=== PATIENT | male | born 1970 | race Caucasian/White ===

== ENCOUNTER 2024-05-16 15:47 | Inpatient (IN) | payer OTHER, SELFPAY ==
[2024-05-16] VITALS (10 sets, daily range): BP systolic 132–198; BP diastolic 82–128; BMI 42.7; BMI 41.6
--- NOTE | 2024-05-16 10:41 | ED.GENMED ---
History of Present Illness
General
Chief Complaint: Breathing Problem
Source: patient
Exam Limitations: none
Time Seen by Provider: 05/16/24 10:32
Nursing documentation reviewed up to this point in time: agreed with
History of Present Illness
History of Present Illness:
53-year-old male with no reported chronic medical issues presents to the emergency room for evaluation of left rib pain. Patient reports onset of symptoms around 3:30 AM while he was sleeping and symptoms have been constant and generally worsening
since that time. He does report that the intensity waxes and wanes. He reports a sharp pain 'underneath my ribs on the left.' No radiation. Seems to be worse with respiration, no relieving factors noted. Reports mild associated shortness of
breath. Mild nausea no vomiting. No constipation or diarrhea. He does report that over the past 48 hours he has had some scant hematuria. No dysuria or change in frequency. He denies any recent cough, fevers, chills. He denies having had
similar symptoms in the past. He denies smoking or drug use but does admit to daily alcohol use including last night.
Review of Systems
Review of Systems
All Other Systems: ROS reviewed and negative except as documented in HPI and ROS
Constitutional: Denies fever or chills
Respiratory: Reports trouble breathing; Denies cough
Cardiac: Reports chest pain; Denies palpitations
ABD/GI: Reports abdominal pain and nausea; Denies vomiting, diarrhea or constipated
: Reports bleeding; Denies dysuria, frequency or flank pain
Musculoskeletal: Denies neck pain or back pain
Neurological: Denies dizzy or headache
Phy Exam
Physical Exam
Physical Exam:
General: Awake, alert, oriented x3; appears uncomfortable, shifting in bed unable to find position of comfort
Head: Normocephalic, atraumatic
Eyes: Conjunctiva normal, sclera anicteric
Throat: Airway intact, handling secretions
Neck: Trachea midline, supple without meningismus
Lungs: Clear to auscultation bilaterally, no wheezing, rales, rhonchi
Heart: Tachycardia with regular rhythm, no murmurs, gallops, or rubs
Abd: Soft, non distended, tender to palpation left upper quadrant
Neuro: Cranial nerves grossly intact, speech fluid, no gross motor or sensory deficits
Skin: no rash
Extremities: No edema in extremities, equal pulses in all extremities
Scores
Heart Failure Risk
Heart Failure Risk Score: Not Applicable
Heart Score for Chest Pain Patients
STEMI patient?: Not applicable
Withdrawal Assessment of Alcohol
Withdrawal Assessment Completed?: Not applicable
Course
Orders/Labs/Results
Orders:
Orders
05/16/24 10:08
Electrocardiogram (*1) Urgent
Reason for Study: Chest Pain
EKG- Treatment ONCE
05/16/24 10:33
Complete Blood Count/With Diff Urgent
Comprehensive Metabolic Panel Urgent
Lipase Urgent
Comment: ADD ON
Troponin I Urgent
05/16/24 10:38
Ketorolac [Toradol] 15 mg IV NOW STA
05/16/24 10:39
CT Pe/abd/pel W Urgent
Reason For Exam: left lower chest/upper abd pain
05/16/24 10:41
PTT Urgent
Prothrombin Time Urgent
05/16/24 10:43
Add On- LAB Urgent
Tests Added?: lipase
05/16/24 11:39
Diazepam [Valium] 2 mg PO NOW STA
05/16/24 13:27
Urinalysis Reflex To Culture Urgent
0.9% Sodium Chloride 1000 ml [Nss] 1,000 ml IV BOLUS
HYDROmorphone [Dilaudid] 0.5 mg IV NOW STA
05/16/24 13:31
Troponin I Urgent
Blood Culture Urgent
THERESE Source: Blood/Venous
Specimen Description:
05/16/24 13:40
Blood Culture Routine
THERESE Source: Blood/Venous
Specimen Description:
05/16/24 13:42
Lactate Level [Lactic Acid] Urgent
05/16/24 14:20
Acetaminophen [Tylenol] 650 mg PO NOW STA
05/16/24 14:25
Piperacillin/Tazo 3.375 Gram [Zosyn] 3.375 gram in 50 ml IV NOW
Abnormal Lab Results
05/16/24 05/16/24
10:33 13:42
WBC 12.3 H 10^3/uL
(4.8-10.8)
MCV 98.3 H fL
(80.0-94.0)
MCH 36.3 H pg
(27.0-31.0)
Plt Count 126 L 10^3/uL
(130-400)
Abs Immat Gran (auto) 0.1 H 10^3/uL
(0-0.05)
Absolute Neuts (auto) 9.6 H 10^3/uL
(1.4-6.5)
Absolute Monos (auto) 0.7 H 10^3/uL
(0.1-0.6)
Neutrophils % 77.6 H %
(42.2-75.2)
Lymphocytes % 15.6 L %
(20.5-51.1)
Sodium 134 L mmol/L
(135-145)
Chloride 95 L mmol/L
(98-107)
Glucose 205 H mg/dl
(70-99)
Lactic Acid 2.8 H mmol/L
(0.7-2.0)
Total Bilirubin 1.7 H mg/dl
(0.2-1.3)
AST 92 H U/L
(17-59)
ALT 85 H U/L
(0-50)
Alkaline Phosphatase 129 H U/L
(38-126)
05/16/24 10:33
05/16/24 10:33
Vital Signs
Initial and Last Documented VS:
Initial Vital Signs
Temp Pulse Resp BP Pulse Ox
36.8 C 109 20 168/128 95
05/16/24 10:05 05/16/24 10:05 05/16/24 10:05 05/16/24 10:05 05/16/24 10:05
Last Documented Vital Signs
Temp Pulse Resp BP Pulse Ox
38.1 C H 108 20 135/89 91
05/16/24 13:46 05/16/24 14:00 05/16/24 14:02 05/16/24 14:00 05/16/24 14:00
MDM/Problems Addressed
Differential Diagnosis Includes:
Nephrolithiasis, PE, pneumothorax, lower lobe pneumonia, ACS, aortic dissection, musculoskeletal pain
MDM/Problems Addressed:
53-year-old male presents for evaluation of left rib pain�pain located left lower chest/upper abdomen; acute onset at around 3:30 AM. He has had some hematuria over the past few days. Also reports some mild associated shortness of breath today
since the pain has become very intense. Markedly hypertensive, tachycardic, mildly tachypneic; exam as above. EKG shows sinus tachycardia with new lateral T wave abnormalities. Plan to place an IV check labs including a CBC and a CMP, troponin,
lipase. Will check CTA to rule out PE and scan through abdomen pelvis as well to evaluate for nephrolithiasis. Will treat pain. Monitor closely reassess after the above.
Will proceed with a CT scan prior to lab work as, in my judgment, the risk of life-threatening emergency such as aortic dissection or PE given his significantly abnormal vital signs and EKG outweighs risk of IV contrast administration.
CTA chest/abdomen/pelvis shows no PE, no signs of aortic dissection or other acute pathology to account for patient's symptoms. Labs reviewed and CBC shows slight leukocytosis of 12.3, thrombocytopenia to 126, mildly abnormal LFTs with AST greater
than ALT�suspect likely related to reported daily alcohol use. Lipase pending. His initial troponin is undetectable which is reassuring given onset of symptoms 6 hours prior to arrival however we will continue to trend given abnormal EKG.
Clinical reassessment symptoms have only slightly improved with Peteradol�santa describes a sensation 'like a spasming' in the left upper abdomen/chest wall; can trial low-dose muscle relaxer.
Patient still having significant pain, will provide additional dose of pain medication. We are awaiting his repeat troponin. At this point unclear etiology to his significant pain�his lipase is normal he has no signs of acute pancreatitis on CT.
He has no nephrolithiasis on CT. He has no dissection or PE or pneumothorax--although evaluation of subsegmental branches for PE was limited. We are pending urinalysis to evaluate for pyelonephritis but he denies urinary symptoms. Certainly
gastric ulcer is a possibility given his history of daily alcohol use; gastritis somewhat less likely as he has no vomiting. LFTs suspected to be related to alcohol use but certainly retained biliary stone would be a consideration as well although
not clearly visible on CT scan may need HIDA scan if symptoms persistent without other etiology identified. I think at this point given his significant pain requiring multiple rounds of parenteral pain medications and no clear etiology, persistent
hypertension and tachycardia and abnormal blood work he should be admitted for continued evaluation and treatment. Furthermore given limitation of CTA to rule out peripheral PE will check duplex ultrasounds as well.
Patient spiked fever while here in the emergency room. Added lactate and blood cultures. Will cover with antibiotics broad-spectrum�no clear infectious source at this point but he has leukocytosis, tachycardia and fever and with abnormal LFTs
there is a possibility of retained stone although not clearly seen on CT. May require HIDA scan. Case discussed with hospitalist.
Chronic conditions affecting care:
Alcohol use
Acute Exacerbation and/or Progression of Chronic Illness:
Acutely hypertensive
*Radiology
Radiology exam reviewed: radiology read reviewed
*Pulse Oximetry
Patient hypoxic: no
*EKG
Interpreted by ED Provider?: Yes
Heart Rate: 102
Rate: tachycardiac
Rhythm: sinus
[place]: left axis deviation
Interval: normal interval
Ischemia: T-wave inversion
*Critical Care Note
Total Time (30-74mins, 75-104mins- exclusive of procedures): Not Applicable
Data Reviewed
Source: patient
Patient Management
Discussion with other providers: Hospitalist (Discussed with hospitalist)
Escalation/DeEscalation of care consider admission/obs:
Admission indicated
ED Attending Note
-
Portions of this chart may have been created with voice recognition software.� Occasional wrong word or��sound alike� substitutions may have occurred due to the inherent limitations of voice recognition software.
Discharge Plan
Departure
Patient Disposition: Admit
Date of Disposition: 05/16/24
Time of Disposition: 14:26
Admit to doctor: Vania
Presentation/result/management discussed w/ accepting MD/DO: Hospitalist
Discharge Problem:
Left sided abdominal pain, Fever, Abnormal LFTs, Thrombocytopenia
Prescriptions:
No Action
ibuprofen 200 mg Tablet
600 mg PO Q6HPRN PRN (Reason: mild pain)
Referrals:
UNKNOWN - PT DOES,NOT KNOW [Family Provider] -
Interventions
Interventions:
*Risk Screen - Suicide Last Done: 05/16/24 10:35
*General Assessment Last Done: 05/16/24 10:34
*Neglect/Abuse Screening Last Done: 05/16/24 10:35
ED- Fall Risk Assessment Last Done: 05/16/24 10:36
*ED COVID-19 Vaccine History Last Done: 05/16/24 10:47
ED- Cardiac Assessment Last Done: 05/16/24 10:36
ED- Pulmonary Assessment Last Done: 05/16/24 10:36
Discharge Date and Time
Print Language: NIUEAN
[2024-05-16] MEDS: TORADOL 15 MG IV (10:42)
[2024-05-16 10:47] LABS: % Basophils 0.4 % (0-2); % Eosinophils 0.2 % (0-6); % Immature Granulocytes 0.4 % (0-0.5); % Lymphocytes 15.6 % (20.5-51.1); % Monocytes 5.8 % (1.7-9.3); % Neutrophils 77.6 % (42.2-75.2); Absolute Basophils 0.1 10^3/uL (0-0.2); Absolute Immature Granulocytes 0.1 10^3/uL (0-0.05); Absolute Lymphocytes 1.9 10^3/uL (1.2-3.4); Absolute Monocytes 0.7 10^3/uL (0.1-0.6); Absolute Neutrophils 9.6 10^3/uL (1.4-6.5); Hematocrit 46.9 % (39.0-52.0); Hemoglobin 17.3 g/dL (13.0-18.0); Mean Corp Hgb Conc. 36.9 g/dL (33.0-37.0); Mean Corpuscular Hgb 36.3 pg (27.0-31.0); Mean Corpuscular Volume 98.3 fL (80.0-94.0); Mean Platelet Volume 10.4 fL (7.4-10.4); Nucleated Red Blood Cells % 0 % (-); Platelet Count 126 10^3/uL (130-400); Red Blood Cell Count 4.77 10^6/uL (4.70-6.10); Red Cell Dist. Width 11.7 % (11.5-14.5); White Blood Cell Count 12.3 10^3/uL (4.8-10.8)
[2024-05-16 10:55] LABS: ALT (SGPT) 85 U/L (0-50); AST (SGOT) 92 U/L (17-59); Albumin 4.5 g/dl (3.5-5.0); Alkaline Phosphatase 129 U/L (38-126); Blood Urea Nitrogen 10 mg/dl (9-20); Calcium 9.3 mg/dl (8.4-10.2); Carbon Dioxide 27 mmol/L (22-30); Chloride 95 mmol/L (98-107); Estimated Creatinine Clearance > 125 ml/min; Glucose 205 mg/dl (70-99); Potassium 3.7 mmol/L (3.5-5.1); Sodium 134 mmol/L (135-145); Total Bilirubin 1.7 mg/dl (0.2-1.3); Total Protein 8.2 g/dl (6.3-8.2); eGFR > 60.00
[2024-05-16 11:02] LABS: Troponin I < 0.012 ng/ml
[2024-05-16 11:04] LABS: APTT 27.5 Sec (23.4-35.0)
[2024-05-16] MEDS: VALIUM 2 MG PO (11:43)
[2024-05-16 11:55] LABS: Lipase 154 U/L (23-300)
[2024-05-16] MEDS: DILAUDID 0.5 MG IV ×2 (13:44→18:07)
[2024-05-16] MEDS: NSS 1000 IV ×2 (13:44→17:56)
[2024-05-16 14:05] LABS: Lactic Acid 2.8 mmol/L (0.7-2.0)
[2024-05-16 14:10] LABS: Troponin I < 0.012 ng/ml
[2024-05-16] MEDS: TYLENOL 650 MG PO (14:24)
[2024-05-16] MEDS: ZOSYN 50 IV ×2 (14:28→19:44)
--- NOTE | 2024-05-16 14:39 | HPS.HSE ---
Addendum entered and electronically signed by Shon Siddiqui MD 05/16/24 17:48:
Sudden onset abdominal pain early this morning. No prior episodes. Pain is left upper abd. Noted hard small stools which is atypical for him during the prior 3 days. Pt demonstrating a lot of pain
Pt seen independently and agree with [employer] note
Lungs clear
CV reg
Abd significant guarding, hypoactive BS, very tender LUQ, but no referred pain
Ext no edema
Imp: etio of abd pain is unclear. Presentation is atypical, but concern for surgical abd and as such consult with Dr. Vivas was requested, who does not believe this is a surgical abd and recommends conservative managment
excessive Etoh consumption
P narcotic analgesic
follow up abd XRay
follow Lactic Acid
Original Note:
Family Physician
-
Family Physician: NOT KNOW UNKNOWN - PT DOES
Chief Complaint
-
Left-sided abdominal pain, nausea, fever
History of Present Illness
53-year-old male complaining of sharp pain under his ribs on the left side of his abdomen radiating to left flank occurring at 330 this morning that has been constant but then waxes and wanes. He also reports some mild nausea but no vomiting . He
also reports a sore throat for the past couple days. He complains of hematuria yesterday with some sediment in his urine x 1. He states he had episode of kidney stones that he passed approximately 1 month ago. he is also complaining of
constipation x 3 days with hard stool when he does. He does report daily alcohol use including last night, he typically drinks 10 beers a day with 6 ounces of whiskey daily. In the ER he was noted to have mild transaminitis with leukocytosis and a
temp of 100.6 F. He denies headache, chest pain, palpitations, shortness breath, cough, vomiting, diarrhea, no history of drug use. His past medical history of alcohol abuse, renal calculi, occasional smoker
Medical History
Past Medical History
Past Medical History: Reports Other
Additional Past Medical History:
Alcohol abuse
Occasional smoker
Renal calculi
Past Surgical History: Reports Appendectomy
Social History
Tobacco: Smoker (Reports occasionally smokes)
Alcohol: Daily (10 beers +6 ounces of Edy whiskey daily)
Drug: None
Personal:
Living: Alone
Employment: Employed (communication and outreach manager)
Family History
Family History: Other (Father early CAD multiple MIs starting at age 45 multiple stents, AVR, CVA still living, mother age 72 lung cancer history of renal disease requiring renal transplant)
Allergies / Home Medications
Allergies reflects when Allergies were last updated in [facility].
Home Medications with original date entered in [facility]
Allergy/Medication List:
Allergies
Allergy/AdvReac Type Severity Reaction Status Date / Time
No Known Allergies Allergy Unverified 05/16/24 10:04
Home Medications
ibuprofen 200 mg tablet 600 mg PO Q6HPRN PRN mild pain 05/16/24
Review of Systems
-
History Source: Patient
A 12 point ROS was completed and negative except as noted: Yes
Constitutional: Reports Fever
EENT: Reports Sore Throat; Denies Runny Nose
Respiratory: Denies Cough or Trouble Breathing
Cardiac: Denies Chest Pain, Diaphoresis or Palpitations
Abdomen/GI: Reports Abdominal Pain (Left upper quadrant to left flank), Nausea and Constipated (3 days ); Denies Vomiting, Diarrhea, Bloody Stools or Black Stools
: Reports Flank Pain (Left) and Bleeding (Hematuria yesterday x 1 episode with sediment); Denies Dysuria, Frequency, Incontinence or Difficulty Voiding
Musculoskeletal: Denies Joint Pain or Edema
Skin: Denies Itching or Rash
Neurological: Denies Dizzy, Headache or Weakness
Endocrine: Reports No Symptoms
Hematologic/Lymphatic: Reports No Symptoms
Psych: Reports Calm
Physical Exam
Vital Signs
Vital Signs
Temp Pulse Resp BP Pulse Ox
100.6 F H 108 20 135/89 91
05/16/24 13:46 05/16/24 14:00 05/16/24 14:02 05/16/24 14:00 05/16/24 14:00
Physical Exam
General: Conversant, Pain and Fever; No Chills
HEENT: NormoCephalic, Anicteric, Moist mucous membranes, PERRLA, [place] Conjunctivae and No Ptosis
Respiratory: Clear; No Wheezes, Rales or Rhonchi
Cardiac: S1/S2 and Tachycardia (Sinus); No Murmur, Rub, Gallop or Peripheral Edema
Breast: Deferred by me
GI: Tender (Left upper quadrant to left flank), Distended and Other (Unable to assess hepatosplenomegaly due to pain and guarding, hypoactive bowel sounds)
Rectal: Deferred by Provider
Genito-urinary: Deferred by me
Musculoskeletal: No Clubbing, No Cyanosis and No Edema
Skin: Warm and Dry; No Rash or Jaundice
Neuro: AO x 3, No Motor Deficits, Nonfocal/grossly intact, Cranial Nerves Intact and No Sensory Deficits; No Slurred Speech, Facial Droop, Tremors or Sedated
Psych: Calm
Laboratory Results
-
05/16/24 10:33
05/16/24 10:33
Laboratory Results
PT 14.0 Sec (11.4-14.6) 05/16/24 10:41
INR 1.10 05/16/24 10:41
APTT 27.5 Sec (23.4-35.0) 05/16/24 10:41
Lactic Acid 2.8 mmol/L (0.7-2.0) H 05/16/24 13:42
Total Bilirubin 1.7 mg/dl (0.2-1.3) H 05/16/24 10:33
AST 92 U/L (17-59) H 05/16/24 10:33
ALT 85 U/L (0-50) H 05/16/24 10:33
Alkaline Phosphatase 129 U/L (38-126) H 05/16/24 10:33
Troponin I < 0.012 ng/ml 05/16/24 13:31
Lipase Cancelled 05/16/24 10:40
Impression/Plan
-
Impression/plan:
Admit to telemetry
#Acute Abd pain /transaminitis with leukocytosis unclear etiology
#Hematuria concern for uti/ pyelonephritis
#Diffuse hepatic steatosis per CT
AST 92, ALT 85, alk phos 129, T. bili 1.7
WBC 12.3 with left shift, 100.6 F, HR 108, 135/89
-Check blood cultures, UA, INSTALLATION ENGINEER
-- IV Zosyn
-IV NSS
-IV PPI
-IV Dilaudid as needed pain, Zofran as needed nausea, Tylenol for fever
- Consult Gen surgery
- u/s liver in am
-Follow CBC, CMP
CT chest abdomen pelvis with contrast: Diffuse hepatic steatosis, no PE. No acute process in the chest, abdomen or pelvis
#Alcohol abuse
10 beers daily with 6 ounces of whiskey daily
-MSAS screen with protocol
- Iv thimaine, Iv folate
#Acute thrombocytopenia likely reactive
PLT 126, follow cmp
DVT prophylaxis
SCDs
Full code
[2024-05-16] MEDS: DILAUDID 1 MG IV ×2 (15:20→21:40)
[2024-05-16 15:54] LABS: COVID-19 Antigen Negative (Negative)
--- NOTE | 2024-05-16 16:04 | CON.GS ---
Medical History
-
Chief Complaint: Abdominal pain
History of Present Illness:
Patient is a 53 yo M with a PMH of obesity, alcohol abuse, nephrolithiasis, and s/p open appendectomy who presents with less than 24 hours of LUQ abdominal pain. Mr. Tucker states that he awoke this morning with severe LUQ abdominal pain.
Described as a spasm of pain which radiated to his back. Associated low-grade fevers. Associated nausea and vomiting. He reports dysuria and hematuria in the days preceding. He reports some issues with constipation, but reports passing flatus
and nonbloody bowel movements. He denies any jaundice, pale stools, tea colored urine. He denies any prior issues of similar abdominal pain.
Past Medical History
Past Medical History: Other (Obesity)
Past Surgical History: Appendectomy
Social History
Tobacco: Smoker (Occasional)
Alcohol: Daily (10 beers and 5 shots a day)
Drug: None
Personal:
Living: Alone
Employment: Employed
Family History
Family History: Reviewed & Not Pertinent
Allergies / Home Medications
Allergy/AdvReac Type Severity Reaction Status Date / Time
No Known Allergies Allergy Unverified 05/16/24 10:04
�Medication �Instructions �Recorded �Confirmed �Type
ibuprofen 200 mg tablet 600 mg PO Q6HPRN PRN mild pain 05/16/24 05/16/24 History
Review of Systems
-
A 10 point review of systems was completed, and was negative except as per HPI.
Physical Exam
Vital Signs
Temp Pulse Resp BP Pulse Ox
100.6 F H 113 27 135/89 91
05/16/24 13:46 05/16/24 14:45 05/16/24 14:45 05/16/24 14:00 05/16/24 14:00
05/15/24 05/16/24 05/17/24
06:59 06:59 06:59
Actual Weight 135 kg
Body Mass Index (BMI) 42.7
Lab Results
05/16/24 10:33
WBC 12.3 10^3/uL (4.8-10.8) H 05/16/24 10:33
Hgb 17.3 g/dL (13.0-18.0) 05/16/24 10:33
Hct 46.9 % (39.0-52.0) 05/16/24 10:33
Plt Count 126 10^3/uL (130-400) L 05/16/24 10:33
Abs Immat Gran (auto) 0.1 10^3/uL (0-0.05) H 05/16/24 10:33
Neutrophils % 77.6 % (42.2-75.2) H 05/16/24 10:33
Physical Exam
General: Well Developed, Well Nourished, No Apparent Distress and Other (Diaphoretic)
HEENT: Normocephalic and Anicteric
Respiratory: Clear and Accessory Resp Muscle Use
Cardiac: Other (Mild tachycardia)
GI: Soft, Non Distended, Tender (LUQ just under costal margin), Obese and Other (Nonperitoneal (no rebound or guarding, no tenderness with percussion))
Musculoskeletal: No Edema
Skin: Warm and Dry
Neuro: Nonfocal/Grossly Intact
Data Reviewed
-
CT Scan: Image Personally Visualized and interpreted and Report Reviewed by me
Labs: Labs Reviewed by me
Assessment / Plan
-
Patient is a 53 yo M p/w abdominal pain
Uncertain exact origin of pain, possible passed kidney stone, possible MSK pathology. CT scan imaging was reviewed, no evidence of a acute intra-abdominal process. No significant bowel distention, pneumatosis, or free air. No portal venous gas.
No significant fluid or abscess formation. Exam with localized pain in the LUQ, but otherwise no pain on palpation or percussion of the abdomen; no evidence of peritonitis at this time.
-- No indication or plan for surgical intervention
-- Please call with any questions or concerns
[2024-05-16 17:50] LABS: INR 1.14; PT 14.4 Sec (11.4-14.6)
[2024-05-16] MEDS: THIAMINE INJECTION 200 MG IV (18:03)
[2024-05-16 18:07] LABS: GGTP 743 U/L (15-73); Magnesium 1.3 mg/dl (1.6-2.3); Phosphorus 3.9 mg/dl (2.5-4.5)
[2024-05-16 18:08] LABS: Alcohol None Detected
[2024-05-16 18:13] LABS: % Basophils 0.3 % (0-2); % Eosinophils 0.1 % (0-6); % Immature Granulocytes 0.6 % (0-0.5); % Lymphocytes 6.3 % (20.5-51.1); % Monocytes 5.5 % (1.7-9.3); % Neutrophils 87.2 % (42.2-75.2); Absolute Basophils 0.1 10^3/uL (0-0.2); Absolute Immature Granulocytes 0.1 10^3/uL (0-0.05); Absolute Lymphocytes 1.5 10^3/uL (1.2-3.4); Absolute Monocytes 1.3 10^3/uL (0.1-0.6); Absolute Neutrophils 20.4 10^3/uL (1.4-6.5); B-Hydroxybutyrate 0.09 mmol/L (0.02-0.27); Hematocrit 45.7 % (39.0-52.0); Hemoglobin 16.8 g/dL (13.0-18.0); Mean Corp Hgb Conc. 36.8 g/dL (33.0-37.0); Mean Corpuscular Hgb 36.6 pg (27.0-31.0); Mean Corpuscular Volume 99.6 fL (80.0-94.0); Mean Platelet Volume 10.1 fL (7.4-10.4); Nucleated Red Blood Cells % 0 % (-); Platelet Count 131 10^3/uL (130-400); Red Blood Cell Count 4.59 10^6/uL (4.70-6.10); White Blood Cell Count 23.4 10^3/uL (4.8-10.8)
[2024-05-16 19:54] LABS: Urine Albumin Trace (Neg - Trace); Urine Bilirubin 1+ (Negative); Urine Character Clear (Clear); Urine Color Amber; Urine Glucose Negative (Negative); Urine Ketone Trace (Negative); Urine Leukocyte Trace (Negative); Urine Nitrite Negative (Negative); Urine Occult Blood 4+ (Negative); Urine Specific Gravity 1.015 (<1.030); Urine Urobilinogen 1+ (Neg - 1+)
[2024-05-16] MEDS: VALIUM INJECTION 2 MG IV (20:33)
[2024-05-16] MEDS: MAGNESIUM SULFATE 50 IV (20:33)
[2024-05-16 20:42] LABS: Opiates Positive (Negative)
[2024-05-16 20:43] LABS: Amphetamines Negative (Negative); Barbiturates Negative (Negative); Benzodiazepines Positive (Negative); Buprenorphine Negative (Negative); Cocaine Negative (Negative); Marijuana Negative (Negative); Methadone Negative (Negative); Methamphetamines Negative (Negative); Phencyclidine Negative (Negative); Tricyclic Antidepressants Negative (Negative)
[2024-05-16 20:59] LABS: Urine Mucus Moderate; Urine Red Blood Cell 30-40 /HPF (0-2)
[2024-05-16 21:02] LABS: Fentanyl, Urine Negative (Negative)
[2024-05-16 21:06] LABS: Lactic Acid 3.2 mmol/L (0.7-2.0)
[2024-05-16] MEDS: ZOFRAN 4 MG IV (21:45)
[2024-05-17] VITALS (27 sets, daily range): BP systolic 120–193; BP diastolic 74–118
[2024-05-17] MEDS: DILAUDID 0.5 MG IV ×2 (00:08→15:17)
[2024-05-17] MEDS: TYLENOL 650 MG PO ×2 (00:08→10:30)
[2024-05-17] MEDS: THIAMINE INJECTION 200 MG IV ×4 (00:09→23:47)
[2024-05-17] MEDS: ATIVAN 1 MG PO ×2 (00:47→12:32)
[2024-05-17 02:02] LABS: Lactic Acid 1.5 mmol/L (0.7-2.0)
[2024-05-17] MEDS: DILAUDID 1 MG IV ×4 (04:01→21:02)
[2024-05-17] MEDS: ZOSYN 50 IV ×4 (04:01→19:50)
[2024-05-17] MEDS: NSS 1000 IV ×2 (04:01→19:50)
--- NOTE | 2024-05-17 05:15 | PTCARENOTE ---
Lactic acid 3.2- notified WELDER TECH, maintain fluids.
Throughout night, pt had consistent pain in LUQ 05/30 - see DEC. Elevated BP throughout night- WELDER TECH notified and no new orders. MSAS 4-6
Pt was also short of breath along with LUQ pain- EKG obtained
[2024-05-17 06:47] LABS: % Basophils 0.4 % (0-2); % Eosinophils 0.1 % (0-6); % Immature Granulocytes 0.7 % (0-0.5); % Neutrophils 85.8 % (42.2-75.2); Absolute Basophils 0.1 10^3/uL (0-0.2); Absolute Immature Granulocytes 0.1 10^3/uL (0-0.05); Absolute Lymphocytes 0.7 10^3/uL (1.2-3.4); Absolute Monocytes 0.9 10^3/uL (0.1-0.6); Absolute Neutrophils 10.5 10^3/uL (1.4-6.5); Hematocrit 40.5 % (39.0-52.0); Hemoglobin 14.8 g/dL (13.0-18.0); Mean Corp Hgb Conc. 36.5 g/dL (33.0-37.0); Mean Corpuscular Hgb 36.5 pg (27.0-31.0); Mean Corpuscular Volume 99.8 fL (80.0-94.0); Nucleated Red Blood Cells % 0 % (-); Red Blood Cell Count 4.06 10^6/uL (4.70-6.10); White Blood Cell Count 12.2 10^3/uL (4.8-10.8)
[2024-05-17 07:05] LABS: ALT (SGPT) 70 U/L (0-50); AST (SGOT) 68 U/L (17-59); Albumin 3.8 g/dl (3.5-5.0); Alkaline Phosphatase 96 U/L (38-126); Blood Urea Nitrogen 21 mg/dl (9-20); Calcium 8.4 mg/dl (8.4-10.2); Carbon Dioxide 29 mmol/L (22-30); Chloride 95 mmol/L (98-107); Estimated Creatinine Clearance 72 ml/min; Glucose 173 mg/dl (70-99); HDL Cholesterol 41 mg/dl; LDL Cholesterol, Calculated 117 mg/dl; Potassium 3.5 mmol/L (3.5-5.1); Sodium 132 mmol/L (135-145); Total Bilirubin 1.7 mg/dl (0.2-1.3); Total Cholesterol 192 mg/dl (50-199); Triglyceride 171 mg/dl (10-149); Very Low Density Lipoprotein 34 mg/dl (0-30); eGFR 50.88
--- NOTE | 2024-05-17 07:38 | CON.GI ---
Consultation
-
Date/Time Consultation Requested: 05/16/24
Date/Time Consultation Performed: 05/17/24
Requesting Provider: Chanelle Starks
Performing Provider: Tanya Rice
Reason for Consultation: Elevated liver enzymes
Medical History
Chief Complaint / HPI
Chief Complaint: LUQ abdominal pain
History of Present Illness:
Jose is a 53-year-old male with past medical history of alcohol abuse, nephrolithiasis, history of appendectomy and obesity admitted after presenting with complaints of left upper quadrant abdominal discomfort with radiation to his back with
and associated low-grade fevers, nausea and vomiting. He also admits to 1 episode of hematuria on the day prior to presentation. He denies having anything like this in the past. He states that he has been somewhat constipated but is passing gas.
He was admitted to daily alcohol consumption, 10 beers and 5 shots per day. He is an occasional tobacco user.
On arrival was 12.3, repeat was 23.4 prompting further evaluation for infectious process. Repeat today was 12.2, hemoglobin stable at 14.8, platelets 131.
CT abdomen pelvis shows diffuse hepatic steatosis otherwise gallbladder appears gretta, no mention of the pancreas or biliary tree. No evidence of enlarged lymph nodes, free fluid or free air. Bowel is without evidence of obstruction or adjacent
inflammatory changes.
LFTs: Total bilirubin 1.7, GGT 743, AST 92, ALT 85, alkaline phosphatase 129, lipase 154. Repeat LFTs today show improvement of transaminases, AST 68, ALT 70, alk phos normalized to 96, total bilirubin remains 1.7. Initially BUN 10/Cr. 0.9 with new
NADINE today, BUN 21/Cr. 1.6. UA with occult blood,RBC, leuk est, nitrite neg.
Past Medical History
Past Medical History: Other (obesity, nephrolithiasis )
Past Surgical History: Appendectomy
Social History
Tobacco: Smoker
Alcohol: Daily
Family History
Family History: Reviewed & Not Pertinent
Allergies / Home Medications
Allergy/AdvReac Type Severity Reaction Status Date / Time
No Known Allergies Allergy Unverified 05/16/24 10:04
�Medication �Instructions �Recorded
ibuprofen 200 mg tablet 600 mg PO Q6HPRN PRN mild pain 05/16/24
Review of Systems
-
History Source: Patient
All other systems: A 12 pt ROS was Negative except as stated above in HPI
Vital Signs
Temp Pulse Resp BP Pulse Ox
100.3 F 105 22 187/111 94
05/17/24 03:16 05/17/24 03:16 05/17/24 03:16 05/17/24 03:16 05/17/24 03:16
Physical Exam
Exam
GENERAL: Appears mildly uncomfortable, but in no active distress
ABDOMEN: central obesity +BS; soft, nondistended, TTP in LUQ, left flank and +Left CVA tenderness
Results
WBC 12.2 10^3/uL (4.8-10.8) H 05/17/24 05:57
Hgb 14.8 g/dL (13.0-18.0) 05/17/24 05:57
Hct 40.5 % (39.0-52.0) 05/17/24 05:57
MCV 99.8 fL (80.0-94.0) H 05/17/24 05:57
Plt Count 131 10^3/uL (130-400) 05/16/24 17:34
Absolute Neuts (auto) 10.5 10^3/uL (1.4-6.5) H 05/17/24 05:57
PT 14.4 Sec (11.4-14.6) 05/16/24 17:34
INR 1.14 05/16/24 17:34
APTT 27.5 Sec (23.4-35.0) 05/16/24 10:41
Sodium 132 mmol/L (135-145) L 05/17/24 05:57
Potassium 3.5 mmol/L (3.5-5.1) 05/17/24 05:57
Chloride 95 mmol/L (98-107) L 05/17/24 05:57
Carbon Dioxide 29 mmol/L (22-30) 05/17/24 05:57
BUN 21 mg/dl (9-20) H 05/17/24 05:57
Creatinine 1.6 mg/dL (0.7-1.3) H 05/17/24 05:57
Calcium 8.4 mg/dl (8.4-10.2) 05/17/24 05:57
Total Bilirubin 1.7 mg/dl (0.2-1.3) H 05/17/24 05:57
AST 68 U/L (17-59) H 05/17/24 05:57
ALT 70 U/L (0-50) H 05/17/24 05:57
Alkaline Phosphatase 96 U/L (38-126) 05/17/24 05:57
Lipase Cancelled 05/16/24 10:40
Diagnostic Image Results:
Prior GI Procedures:
EGD:
Colonoscopy:
Assessment / Plan
-
53-year-old male with past medical history of alcohol abuse, nephrolithiasis, history of appendectomy and obesity admitted with acute onset LUQ abdominal paind with radiation to left flank and one episode of hematuria found to have elevated liver
enzymes.
LUQ abdominal pain, left flank pain, hematuria-- suspect UTI vs. kidney stone, less likely primary GI etiology
-blood cultures + gram positive cocci in clusters c/w staph infection
-f/u urine culture
Elevated liver enzymes-- 2/2 infectious process vs. alcohol use vs. gallbladder/bililary pathology
-check hepatitis panel
-LFTs improving, AST 92 -->68, ALT 85 --> 70, Alk phos 129 --> 96
-US shows fatty liver, normal appearing gallbladder and biliary tree
Alcohol abuse
-etoh level undetectable
-monitor for signs of withdrawal
-thiamine, folic acid
LFTs improving, suspect symptoms 2/2 underlying infectious process unrelated to GI tract. Please call back if LFTs acutely worsen or hepatitis serologies return positive. Patient should follow-up in the office with us as an outpatient for workup and
management of his fatty liver.
Data Reviewed
-
CT Scan: Report Reviewed by me
-
-
Thank you for consultation and allowing me to participate in the patient's care. Please call the environmental inspector GI physician during the after hours with any questions or concerns.
[2024-05-17] MEDS: NSS (PRESERVATIVE FREE) 10 ML IV (08:22)
[2024-05-17] MEDS: PROTONIX IV 40 MG IV (08:22)
[2024-05-17] MEDS: FOLVITE 1 MG PO (08:22)
[2024-05-17 08:32] LABS: Mean Platelet Volume 11.2 fL (7.4-10.4); Platelet Count 95 10^3/uL (130-400)
--- NOTE | 2024-05-17 10:32 | CM ---
Patient seen at bedside. Patient with daughters. patient states that he lives with his brother in a [address] [facility]. Patient states that he has no DME and is independent of ADL's and IADL's. Patient states that he would talk to [facility] but that he
will 'just stop' when asked about consult for substance abuse issues. Patient plan is to go home with family and he states he does not have a PCP or Pharmacy that he uses. CM will continue to follow for discharge planning needs.
Plan; [facility] to discuss/ home with no needs
--- NOTE | 2024-05-17 11:57 | W.PN.URO.CBU ---
Today's Communication / Plan
-
Left flank pain w/o clear etiology
Clinical picture is c/w possible left renal vein thrombosis
Assessment / Plan
-
Left flank pain w/o clear etiology
CT scan 05/17/24 reviewed: no stranding around left kidney, no stones, no upper urinary tract distension
Gross hematuria: intermittent
New NADINE today
Trace albumen on urinalysis yesterday
Diagnosis
-
Date of Service: May 17, 2024
-
Patient Diagnosis:
Left flank pain: sudden onset yesterday and now worse with deep breathing
Intermittent gross hematuria with passage of stringy clot
No true history of kidney stones: patient has passed stringy clot previously but has never recovered a stone
No dysuria, frequency of urgency
Subjective
-
Clearly uncomfortable, coughing and shallow breathing presently
Objective
-
Vital Signs
Temp Pulse Resp BP Pulse Ox
98.4 F 95 20 166/103 90
05/17/24 11:00 05/17/24 11:00 05/17/24 11:00 05/17/24 11:00 05/17/24 11:00
Intake and Output
05/16/24 05/17/24 05/18/24
06:59 06:59 06:59
Intake Total 1440 / 1440
Output Total 400 / 400
Balance 1040 / 1040
Intake:
Oral fluids 1440 / 1440
Output:
Urine, Voided 400 / 400
Laboratory Results
05/17/24 05:57
05/17/24 05:57
Review of Systems
-
Constitutional: No Symptoms
Respiratory: Cough and Other (left flank pain with deep breathing)
Cardiac: No Symptoms
Abdomen/GI: Abdominal Pain
: Bleeding
Neurological: No Symptoms
Physical Exam
-
General - well developed, well nourished, acute distress
Abdomen - point tenderness over left lower ribs, no flank rash or ecchymosis
Skin - warm & dry with no rash
Neuro - AOx3, no motor deficits
Counseling
-
Discussed with Dr. Siddiqui
Will obtain doppler US of renal vessels
--- NOTE | 2024-05-17 12:53 | PTCARENOTE ---
Patient with noted pulse ox of 90% on RA. Placed on 2L. Patient is unable to take deep breaths due to pain to LUQ.
--- NOTE | 2024-05-17 15:04 | PTCARENOTE ---
This RN was informed from ultrasound department staff that for the Abdominal Doppler ordered urgently, staff would have to be called in and approved from Dr. Fenton. Dr. Guallpa contacted and informed. Dr. Guallpa stated that abdominal doppler can be
performed tomorrow.
--- NOTE | 2024-05-17 15:44 | W.PN.HOSP.TC ---
Today's Communication/Plan
-
transfer to ICU. Updated dgt, Dayanara and discussed with Dr. Bravo
Assessment / Plan
Assessment / Plan
#Acute Abd pain /transaminitis with leukocytosis unclear etiology
#Hematuria concern for uti/ pyelonephritis
#Diffuse hepatic steatosis per CT
AST 92-->68, ALT 85-->70, alk phos 129-->96, T. bili 1.7-->1.7
WBC 12.3-->23.4-->12.2k
Lactic Acid 2.8-->3.2-->1.5
100.6 F, HR 108, 135/89
- blood cultures Pos with Staph Aureus
will start Vanco pending sensitivities
UA: 30-40 RBC, 11-15 WBC, 4+occult blood
-- IV Zosyn, will add Vanco
-IV NSS@ 100 cc/hr, will increase rate
-IV PPI
-IV Dilaudid as needed pain, Zofran as needed nausea, Tylenol for fever
- Consulted Gen surgery/Urology/GI
Surg does not believe process is intra abdominal pathology
- u/s liver: 1. Limited exam.
2. Hepatomegaly and increased echogenicity in the liver, compatible with underlying hepatocellular disease, which most commonly relates to fatty infiltration of the liver.
-Follow CBC, CMP
Bump in BUN/Creat 10/0.9-->21/1.6
unclear, will increase IVF rate
CT chest abdomen pelvis with contrast: Diffuse hepatic steatosis, no PE. No acute process in the chest, abdomen or pelvis
#Alcohol abuse
10 beers daily with 6 ounces of whiskey daily
-MSAS screen with protocol
- Iv thiamine, Iv folate
No evidence of alcohol withdrawal
essential HTN
BP now 193/118
will start Norvasc
#Acute thrombocytopenia likely reactive
PLT 126-->95k
DVT prophylaxis
SCDs
Due to multitude of issues, will transfer to ICU
discussed with Dr. Bravo
Total Critical Care Time 60 minutes. I was immediately available to the patient and staff. I personally examined, reviewed labs, diagnostic images/reports, interpretations, treatment plans, discussed patient care with other providers and family
or caregivers (if patient is unable to make decisions), entered orders as appropriate and documented the medical record.
Full code
Anticipated Discharge: > 48 hours
Subjective/Interval History
-
Date of Service: May 17, 2024
Still with significant pain, generally localized in LUQ anteriorly lateral, no CVA tenderness to percussion
Objective Data
-
Labs:
Laboratory Results
05/17/24
05:57
WBC 12.2 H
Hgb 14.8
Hct 40.5
Plt Count 95 L D
Sodium 132 L
Potassium 3.5
Chloride 95 L
Carbon Dioxide 29
BUN 21 H
Creatinine 1.6 H
Glucose 173 H
Calcium 8.4
Total Bilirubin 1.7 H
AST 68 H
ALT 70 H
Alkaline Phosphatase 96
Vital Signs:
Vital Signs
Temp Pulse Resp BP Pulse Ox
98.8 F 89 20 193/118 95
05/17/24 15:00 05/17/24 15:00 05/17/24 15:00 05/17/24 15:25 05/17/24 15:00
I&O
05/16/24 05/17/24 05/18/24
06:59 06:59 06:59
Intake Total 1440 / 1440
Output Total 400 / 400
Balance 1040 / 1040
Review of Systems
-
History Source: Patient and Family (discussed with family, extensively with dgt, DERREK Nichole)
Constitutional: Reports Fever (Tmax 100.6 @05/16 13:46)
EENT: Reports No Symptoms Reported
Respiratory: Reports No Symptoms
Cardiac: Reports No Symptoms; Denies Chest Pain
Abdomen/GI: Reports Abdominal Pain (LUQ); Denies Nausea, Vomiting or Diarrhea
Genitourinary: Denies Flank Pain (neg to hard percussion)
Neuro: Reports No Symptoms
Physical Exam
-
General: Well Developed (muscular), Well Nourished and Appears in Distress
HEENT: Normocephalic, Atraumatic and Moist Mucous Membranes
Respiratory: Clear to Auscultation; Negative Wheezes, Rales or Rhonchi
Cardiac: Regular Rhythm and S1/S2
GI: Soft, Nontender, Nondistended, Normal Bowel Sounds, No Hepatosplenomegaly and No Hernias; Negative Distended
Genito-urinary: No Costovertebral Tender
Musculoskeletal: No Clubbing, No Cyanosis and No Edema
Skin: Warm and Dry
Neuro: Awake, Alert and Oriented
[2024-05-17] MEDS: NORVASC 5 MG PO (16:17)
[2024-05-17] MEDS: VANCOCIN 540 MG IV (16:23)
[2024-05-17] MEDS: NSS IV (18:37)
[2024-05-17 18:40] LABS: Magnesium 1.7 mg/dl (1.6-2.3)
--- NOTE | 2024-05-17 18:45 | PTCARENOTE ---
Pt received from floor to ICU bed 3368. Pt AAOx3. Reports left flank pain tolerable. Tachypneic. Reports inability to take deep breath d/t abdominal discomfort. Hypertensive. Discussed with ICU LACTATION SPECIALIST who is placing new medication order.
[2024-05-17 18:52] LABS: PT 15.1 Sec (11.4-14.6)
[2024-05-17 18:53] LABS: APTT 28.9 Sec (23.4-35.0)
--- NOTE | 2024-05-17 19:30 | PTCARENOTE ---
on assessment pt AAOx3 but drowsy, low grade temps, c/o pain to L ABD, denies chest pain, SR on the monitor HR in the 80s, increased BP, one time labatolol given per orders see MAR, 2L NC, states 'a little SOB', HOB elevated, dry cough, decreased
appetite but denies N/V, urinal at bedside, ABD doppler due to be completed tomorrow. MSAS 2
[2024-05-17] MEDS: TRANDATE 10 MG IV (19:37)
--- NOTE | 2024-05-17 20:57 | PHA.VAN.IN ---
Assessment
- Assessment
Renal Function: Appears elevated from baseline (Scr 0.9 -->1.6)
Concomitant Antimicrobials: Piperacillin/tazobactam
Plan
- Plan
Initial / Loading Dose: Vancomycin 2000mg IV given 05/17 at 1623
Will dose vancomycin by level due to current renal function.
Random level ordered for 05/18 with AM labs.
Pharmacokinetics Vancomycin I
- -
Patient Age: 53
Patient Sex: Male
Vancomycin Day #: 1
Indication: Bacteremia
Requesting Provider: Dr. Siddiqui
Pertinent Antimicrobial Allergies:
No Known Allergies Allergy (Unverified 05/16/24 10:04)
Height / Weight:
Height 5 ft 10 in
Actual Weight 131.57 kg
- Vital Signs / Lab Results
Temp Pulse Resp BP Pulse Ox
98.8 F 83 16 164/93 94
05/17/24 15:00 05/17/24 20:00 05/17/24 20:00 05/17/24 20:00 05/17/24 20:11
Lab Results - Hematology
05/16/24 05/16/24 05/17/24
10:33 17:34 05:57
WBC 12.3 H 23.4 H 12.2 H
Lab Results - Chemistry
05/16/24 05/17/24
10:33 05:57
BUN 10 21 H
Creatinine 0.9 1.6 H
Estimated Creat Clear > 125 72
Albumin 4.5 3.8
05/16/24 05/16/24 05/17/24
13:42 20:25 01:44
Lactic Acid 2.8 H 3.2 H 1.5
Lab Results - Urine
05/16/24 05/16/24
13:27 19:39
Urine Nitrite Negative
Urine Nitrite (Reflex) Cancelled
Ur Leukocyte Esterase Trace A
Leukocyte Esterase Rfl Cancelled
Urine WBC 11-15 A
Microbiology Results
05/16/24 13:31 Blood Culture - Preliminary
Blood/Venous Staphylococcus aureus
Gram Stain - Preliminary
05/16/24 13:40 Blood Culture - Preliminary
Blood/Venous Positive culture in progress
Gram Stain - Preliminary
[2024-05-18] VITALS (23 sets, daily range): BP systolic 115–176; BP diastolic 59–109; BMI 42.8
[2024-05-18] MEDS: DILAUDID 1 MG IV ×3 (01:12→10:07)
[2024-05-18] MEDS: ZOSYN 50 IV ×3 (01:13→13:19)
[2024-05-18] MEDS: NSS 1000 IV ×2 (01:17→10:12)
[2024-05-18 04:12] LABS: % Basophils 0.4 % (0-2); % Eosinophils 1.8 % (0-6); % Immature Granulocytes 0.3 % (0-0.5); % Lymphocytes 21.4 % (20.5-51.1); % Monocytes 12.4 % (1.7-9.3); % Neutrophils 63.7 % (42.2-75.2); Absolute Eosinophils 0.1 10^3/uL (0-0.7); Absolute Lymphocytes 1.4 10^3/uL (1.2-3.4); Absolute Monocytes 0.8 10^3/uL (0.1-0.6); Absolute Neutrophils 4.3 10^3/uL (1.4-6.5); Hematocrit 38.5 % (39.0-52.0); Hemoglobin 13.8 g/dL (13.0-18.0); Mean Corp Hgb Conc. 35.8 g/dL (33.0-37.0); Mean Corpuscular Hgb 36.9 pg (27.0-31.0); Mean Corpuscular Volume 102.9 fL (80.0-94.0); Mean Platelet Volume 10.4 fL (7.4-10.4); Nucleated Red Blood Cells % 0 % (-); Platelet Count 75 10^3/uL (130-400); Red Blood Cell Count 3.74 10^6/uL (4.70-6.10); Red Cell Dist. Width 11.8 % (11.5-14.5); White Blood Cell Count 6.7 10^3/uL (4.8-10.8)
[2024-05-18 04:33] LABS: ALT (SGPT) 70 U/L (0-50); AST (SGOT) 74 U/L (17-59); Albumin 3.3 g/dl (3.5-5.0); Alkaline Phosphatase 77 U/L (38-126); Blood Urea Nitrogen 13 mg/dl (9-20); Carbon Dioxide 27 mmol/L (22-30); Chloride 100 mmol/L (98-107); Estimated Creatinine Clearance > 125 ml/min; Glucose 128 mg/dl (70-99); Magnesium 1.7 mg/dl (1.6-2.3); Potassium 3.4 mmol/L (3.5-5.1); Sodium 131 mmol/L (135-145); Total Protein 6.4 g/dl (6.3-8.2); eGFR > 60.00
[2024-05-18 04:34] LABS: Vancomycin Random 6.7 ug/ml
[2024-05-18] MEDS: VENTOLIN NEBULES 2.5 MG INH ×3 (05:41→16:46)
[2024-05-18] MEDS: KCL 20 MEQ PO (05:49)
[2024-05-18] MEDS: MAGNESIUM SULFATE 102 GRAMS IV (05:49)
--- NOTE | 2024-05-18 06:00 | PTCARENOTE ---
no changes from prior assessment, pt c/o pain to Left ABD, PRN meds given see MAR, NEB given this AM due to wheezing, HOB elevated, call asher in reach.
--- NOTE | 2024-05-18 07:11 | PTCARENOTE ---
pt received from previous rn- aox3, nsr on monitor, on 2LNC. pt states abdominal pain is at acceptable level, pt unable to take deep inspiration. pt educated on plan of care for shift- npo for ultrasound this am, verbalized understanding. ivf
continue as per order. all safety precautions in place. call asher within reach.
[2024-05-18] MEDS: NORVASC 5 MG PO ×2 (07:18→11:50)
[2024-05-18] MEDS: COLACE 100 MG PO (07:18)
[2024-05-18] MEDS: FOLVITE 1 MG PO (07:18)
[2024-05-18] MEDS: NSS (PRESERVATIVE FREE) 10 ML IV ×2 (07:18→20:09)
[2024-05-18] MEDS: PROTONIX IV 40 MG IV ×2 (07:18→20:09)
[2024-05-18] MEDS: THIAMINE INJECTION 200 MG IV ×2 (07:18→16:54)
[2024-05-18] MEDS: SENOKOT 17.2 MG PO (07:18)
--- NOTE | 2024-05-18 08:10 | PHA.VAN.FU ---
Vancomycin Assessment / Plan
- Assessment
Renal Function: SCR Decreasing
WBC's are: WNL
In the past 24 hrs, patient has been: Afebrile
Concomitant Antimicrobials: piperacillin/tazobactam
- Assessment - Therapeutic Drug Monitoring
Random Level: 6.7 - drawn ~11.5H after 2g loading dose
- Dosing Plan
Adjust Regimen to: Vanc 1750mg Q12H - first dose now then 1800
New Regimen Predicts: AUC (443), Peak (29.7), Trough (10.1)
- Monitoring Plan
No level(s) ordered at this time: consider levels in next few days
- Follow Up
Pharmacy will continue to follow.
Vancomycin Follow UP
- -
Patient Age: 53
Patient Sex: Male
Vancomycin Day #: 2
Indication: Bacteremia
Requesting Provider: Dr. Siddiqui
Pertinent Antimicrobial Allergies:
NKDA
Height / Weight:
Height 5 ft 10 in
Actual Weight 135.4 kg
Pertinent Past Medical History: BMI ~43
- Vital Signs / Lab Results
Temp Pulse Resp BP Pulse Ox
98.5 F 74 12 147/91 95
05/18/24 07:14 05/18/24 06:45 05/18/24 06:45 05/18/24 07:18 05/18/24 07:09
Lab Results - Hematology
05/16/24 05/16/24 05/17/24
10:33 17:34 05:57
WBC 12.3 H 23.4 H 12.2 H
05/18/24
03:57
WBC 6.7
Lab Results - Chemistry
05/16/24 05/17/24 05/18/24
10:33 05:57 03:57
BUN 10 21 H 13
Creatinine 0.9 1.6 H 0.9
Estimated Creat Clear > 125 72 > 125
Albumin 4.5 3.8 3.3 L
05/16/24 05/16/24 05/17/24
13:42 20:25 01:44
Lactic Acid 2.8 H 3.2 H 1.5
Microbiology Results
05/16/24 13:31 Blood Culture - Preliminary
Blood/Venous Staphylococcus aureus
Gram Stain - Preliminary
05/16/24 13:40 Blood Culture - Preliminary
Blood/Venous Positive culture in progress
Gram Stain - Preliminary
Therapeutic Drug Monitoring
Random Vancomycin 6.7 ug/ml 05/18/24 03:57
[2024-05-18] MEDS: VANCOCIN 535 MG IV ×2 (08:27→16:54)
--- NOTE | 2024-05-18 08:47 | CON.INTV ---
Consultation
Consultation Request
Date/Time Consultation Requested: 05/17/2024 - 1801
Date/Time Consultation Performed: 05/18/2024845
Requesting Provider: Dr. Siddiqui
Performing Provider: Dr. Bay
Reason for Consultation: Sepsis/bacteremia
Medical History
-
Chief Complaint: Sudden left-sided abdominal pain
History of Present Illness:
53-year-old male occasional tobacco smoker with a past medical history of alcohol use disorder, and history of renal calculi who presents with left-sided abdominal/chest pain with shortness of breath. No preceding trauma. Pain started around
3�3:30 AM prior to arrival, associated with nausea. 1 day prior he was having some bloody urine which then stopped and so sediment in his urine. He says he also had suspected kidney stones that passed about 1 month prior with similar bloody urine
which is passed. In the ER he was tachycardic to 109, afebrile to 98.3 �F, breathing at 20 breaths/min, BP 168/128 and saturating 95% on room air. Labs showed leukocytosis to 12.3, thrombocytopenia to 126, elevated glucose of 205, transaminitis
with T. bili 1.7, AST 92, ALT 85 and ALP 129, negative troponin x 2, normal lipase at 154, 4+ occult blood in his urine with trace leukocyte esterase, and negative COVID-19 action. Blood cultures were collected, and CTA chest, CT A/P with contrast
showed no large central PE with no acute process in the chest abdomen or pelvis. Lower extremity duplex showed no evidence for DVT, he was given Zosyn, IVF with NS 0.9% x1 L, Toradol, Dilaudid, Tylenol and Valium. Given patient's lactic acidosis
and blood cultures that became positive with Staph aureus, there was concern he may develop worsening sepsis and he was transferred to the ICU for further care. Also, urology was consulted, and left renal vein thrombosis was ruled out today with
Doppler ultrasound showing a patent left renal vein. Critical care services consulted for additional management/recommendations.
Pt seen this AM, pt has left-sided rib pain. BP this AM 181/103, HR 80, SpO2 96% on 2L/min. RR 17. No current signs of alcohol withdrawal. MSAS currently zero. Patient's son and brother also at bedside and answered all the questions. Patient
is worried about having pain tonight when he goes to bed, otherwise he denies chest pain, headache, leg pain, fevers or chills. He does have back pain but it is because his left-sided abdominal/lower chest pain is rating to the back.
PMHx: Alcoholism, tobacco use disorder, history of renal calculi
PSHx: Appendectomy
Past Medical History
Past Medical History: Other (Above as per HPI)
Past Surgical History: Other (Above as per HPI)
Social History
Tobacco: Smoker (Occasionally smokes cigarettes)
Alcohol: Daily (Drinks 10 beers +6 shots of Edy whiskey daily)
Drug: None
Living: Alone
Employment: Employed (logging contractor)
Family History
Family History: CAD (Father with history of [place] and multiple stents with AV replacement), Cancer (Mother: History of lung cancer) and Other (Father: History of CVA; mother: Renal disease requiring transplant)
Allergies / Home Medications
Allergies
Allergy/AdvReac Type Severity Reaction Status Date / Time
No Known Allergies Allergy Unverified 05/16/24 10:04
Home Medications
�Medication �Instructions �Recorded �Confirmed �Last Taken �Type
ibuprofen 200 mg tablet 600 mg PO Q6HPRN PRN mild pain 05/16/24 05/16/24 05/16/24 History
Review of Systems
-
History Source: Patient
All other systems: Negative unless noted (12 point ROS performed and is negative unless mentioned above.)
Vitals / Labs / Diagnostic Testing
Vital Signs
Temp Pulse Resp BP Pulse Ox
98.5 F 68 13 133/77 92
05/18/24 07:14 05/18/24 08:00 05/18/24 08:00 05/18/24 08:00 05/18/24 08:00
Lab Data
05/18/24 03:57
05/18/24 03:57
Laboratory Results
05/17/24
18:32
PT 15.1 H
INR 1.20
APTT 28.9
Microbiology
05/16/24 13:31 Blood/Venous Blood Culture - Preliminary
Staphylococcus aureus
05/16/24 13:31 Blood/Venous Gram Stain - Preliminary
05/16/24 13:40 Blood/Venous Blood Culture - Preliminary
Positive culture in progress
05/16/24 13:40 Blood/Venous Gram Stain - Preliminary
Diagnostic Testing:
Physical Exam
-
HEENT: Normocephalic, Anicteric and Other (Thick neck)
Cardiovascular: S1/S2 and Peripheral Edema (Negative)
Respiratory: Wheeze (Negative), Rales (Mildly heard in the bases bilaterally), Rhonchi (Negative) and Non-Labored Respirations
GI: Soft, Distended (Abdominal obesity), Non Tender and Normal Bowel Sounds
Neurology: AO x 3 and Tremors (Negative)
Skin: Warm and Dry
General: Respiratory Distress (Negative), Comfortable, Chills (Negative) and Sweats (Negative)
Assessment
-
Assessment: 53-year-old male occasional tobacco smoker with a past medical history of alcohol use disorder, and history of renal calculi who presents with left-sided abdominal/chest pain with shortness of breath. No preceding trauma. Pain started
around 3�3:30 AM prior to arrival, associated with nausea. 1 day prior he was having some bloody urine which then stopped and so sediment in his urine. He says he also had suspected kidney stones that passed about 1 month prior with similar bloody
urine which is passed. In the ER he was tachycardic to 109, afebrile to 98.3 �F, breathing at 20 breaths/min, BP 168/128 and saturating 95% on room air. Labs showed leukocytosis to 12.3, thrombocytopenia to 126, elevated glucose of 205,
transaminitis with T. bili 1.7, AST 92, ALT 85 and ALP 129, negative troponin x 2, normal lipase at 154, 4+ occult blood in his urine with trace leukocyte esterase, and negative COVID-19 action. Blood cultures were collected, and CTA chest, CT A/P
with contrast showed no large central PE with no acute process in the chest abdomen or pelvis. Lower extremity duplex showed no evidence for DVT, he was given Zosyn, IVF with NS 0.9% x1 L, Toradol, Dilaudid, Tylenol and Valium. Given patient's
lactic acidosis and blood cultures that became positive with Staph aureus, there was concern he may develop worsening sepsis and he was transferred to the ICU for further care. Also, urology was consulted, and left renal vein thrombosis was ruled
out today with Doppler ultrasound showing a patent left renal vein. Critical care services consulted for additional management/recommendations.
Chronic conditions [employer]: Alcoholism, tobacco use disorder, history of renal calculi
Impression:
#Staph aureus bacteremia - seen in 4/4 bottles from 05/16/2024 - source currently unknown
#Thrombocytopenia likely due to sepsis
#NADINE - resolved
#Lactic acidosis - due to sepsis - lactate now normalized
#Transaminitis with hyperbilirubinemia
#Alcohol use disorder without any acute signs of alcohol withdrawal/DT
#Hypertension
#Obesity at increased risk for HARIS
Plan:
- Continue ABx as per ID - IV vanco continued; Zosyn stopped
- Follow-up surveillance blood cultures that were collected today (05/18)
- Source so far unknown - CT chest/Abd/pelvis with no obvious source of infection
- Consider checking MRI C/T/L spine to rule out paraspinal or spinal etiology of bacteremia
- Check TTE --> negative for endocarditis; consider ESTELA
- Pain control with prn Dilaudid and prn Flexeril (hold if pt sedated)
- Given valium 5mg PO HS x 2 doses --> adjust dose if needed for over-sedation or under-treatment; valium is also a good choice given the pt is an alcoholic
- Thiamine, folate and MVN; MSAS
- Maintain SpO2 >90-94%
- Maintain MAP>65 but with BP goal <140/90
- Check a1c
- Replete electrolytes with K>4, Mg>2 and PO4>3
- trend LFTs and T and D bili
- Trend plt count and transfuse as needed to keep >20k; keep Hb>7g/dL
- Maintain euglycemia with goal BG 140-180
- prn nebulized bronchodilators - patient not currently bronchospastic although he says has been having coughing with mild SOB in the evening hours for the last few days
- stop IVF as he may be developing pulmonary edema
- Incentive spirometer encouraged
- anti-tussant prn with tessalon perles
- DVT ppx
- Patient has thick neck, hypertension and is at high risk for HARIS. This can be discussed with him as an outpatient assuming he is willing to wear PAP with sleep which today he said that he would not.
Patient is hemodynamically stable, and does not require ICU level care. Transfer out of ICU to telemetry. Sweatband Maker/Pulmonary service will now sign off. Thank you for allowing us to be involved in the care of this patient. Please reconsult if
there are any additional questions/concerns, or if patient's respiratory status deteriorates.
Data:
TTE 05/18/2024:
Normal left ventricular size and systolic function. No regional wall motion
abnormalities are seen. LV ejection fraction is 65-70% by Cárdenas's method of
discs. Mild left ventricular hypertrophy.
No significant valvular disease.
No evidence of vegetation within the limitations of this study.
No prior study available for comparison.
Total time spent today was 75 minutes for this encounter. Time includes reviewing laboratory test/imaging results, reviewing pertinent medical records, obtaining and reviewing medical history, performing an appropriate exam, ordering medications,
tests and procedures. Time also includes documentation of this encounter, coordinating patient care and communicating with other healthcare professionals. Total time does not include separately billed tests performed on this date of service.
--- NOTE | 2024-05-18 10:01 | PTCARENOTE ---
blood cultures sent as per order. pt with wheezing, neb treatment given by respiratory. remains on nasal cannula. son and daughter updated as well as patient- educated on plan of care and future testing. assessment unchanged further.
[2024-05-18 10:30] LABS: Osmolality Urine 356 mOsm/kg (300-900)
[2024-05-18 10:39] LABS: Urine Sodium 45 mmol/L (30-90)
--- NOTE | 2024-05-18 10:53 | W.PN.HOSP.TC ---
Today's Communication/Plan
-
Repeat blood cultures
Infectious disease consultation
Echo
Continue antibiotics
Assessment / Plan
Assessment / Plan
53 y/o male with sudden abdominal pain which woke him up from sleep at 3:30 in the morning. Some nausea but no vomiting. He had a sore throat for the past 2 days prior to mission. He also had some hematuria x 1 constipation for 3 days.
Chest x-ray reviewed by me-small effusions bilaterally. Cardiomegaly. Patchy opacities bilaterally
Ultrasound-hepatomegaly with increased echogenicity in the liver compatible with hepatocellular disease, likely secondary to fatty liver.
CT chest abdomen pelvis-with IV contrast only-no large PE no acute process in the chest abdomen or pelvis
#Acute Abd Pain
Unclear etiology
? Splenic infarct
Possible peptic ulcer disease/gastritis
Doppler ruled out RV thrombosis
Endocarditis need to be ruled out with positive blood cultures-no spleen abnormalities noted on CAT scan with IV contrast
Leukocytosis resolved
Questionable pyelonephritis versus passed stone
Hematuria noted
Continue PPI
Pain control Dilaudid and Zofran as needed for nausea
GI and surgical evaluation appreciated
If no further etiology found may need to repeat CT again with IV and p.o. contrast
# Staphylococcal bacteremia
Continue with vancomycin
Repeat blood cultures until clearance
Needs echo.
Infectious disease consultation
Patient is also on Zosyn-I will defer to infectious disease. This can likely be stopped.
# Constipation-add bowel regimen
# Acute kidney injury-resolved
# Hyponatremia-check osmolality studies
# Hematuria concern for uti/ pyelonephritis
#Diffuse hepatic steatosis per CT
Transaminitis
Improving but patient also has alcohol use
# Lactic acidosis-lactic Acid 2.8-->3.2-->1.5
#Alcohol abuse
10 beers daily with 6 ounces of whiskey daily
Continue MSAS screen with protocol
Continue Iv thiamine, Iv folate
#Essential HTN
Norvasc started
#Acute thrombocytopenia likely secondary to alcohol depression on bone marrow
Also infection related
Continue to follow platelets
# Obesity per BMI criteria-42
# DVT prophylaxis-SCDs
# Full code
D/w Son and brother at bed side.
D/w Rn
Images reviewed by me
Total Critical Care Time 33 minutes. I was immediately available to the patient and staff. I personally examined, reviewed labs, diagnostic images/reports, interpretations, treatment plans, discussed patient care with other providers and family
entered orders as appropriate and documented the medical record.
Anticipated Discharge: > 48 hours
Subjective/Interval History
-
Date of Service: May 18, 2024
Objective Data
-
Labs:
Laboratory Results
05/18/24
03:57
WBC 6.7
Hgb 13.8
Hct 38.5 L
Plt Count 75 L D
Sodium 131 L
Potassium 3.4 L
Chloride 100
Carbon Dioxide 27
BUN 13
Creatinine 0.9
Glucose 128 H
Calcium 8.0 L
Total Bilirubin 1.0
AST 74 H
ALT 70 H
Alkaline Phosphatase 77
Vital Signs:
Vital Signs
Temp Pulse Resp BP Pulse Ox
98.5 F 78 12 171/109 96
05/18/24 07:14 05/18/24 10:30 05/18/24 10:30 05/18/24 09:52 05/18/24 10:30
I&O
05/17/24 05/18/24 05/19/24
06:59 06:59 06:59
Intake Total 1440 / 1440 680 / 680 1184 / 1184
Output Total 400 / 400
Balance 1040 / 1040 680 / 680 1184 / 1184
[2024-05-18 11:45] LABS: Cortisol, Random 6.9 ug/dl; TSH 1.58 uIU/ml (0.47-4.68)
[2024-05-18] MEDS: MILK OF MAGNESIA 30 ML PO (11:50)
--- NOTE | 2024-05-18 11:53 | PTCARENOTE ---
ok per Dr. Bay to shower- pt oob to shower, in chair at this time. pain 93% on room air, no wheezing noted as this time. assessment unchanged.
[2024-05-18 12:04] LABS: Vitamin B12 480 pg/ml (239-931)
--- NOTE | 2024-05-18 13:27 | W.PN.URO.CBU ---
Today's Communication / Plan
-
Pain improved
History of gross hematuria warrants outpatient evaluation to include cystoscopy
Assessment / Plan
-
Left flank pain w/o clear etiology
CT scan 05/17/24 reviewed: no stranding around left kidney, no stones, no upper urinary tract distension
Gross hematuria: intermittent
New NADINE 05/17/24: resolved
Trace albumen on urinalysis yesterday: doppler US today ruled out left renal vein thrombosis
Diagnosis
-
Date of Service: May 18, 2024
-
Patient Diagnosis:
Post Op Day:
Patient Diagnosis:
Left flank pain: sudden onset 05/16/24: improved
Intermittent gross hematuria with passage of stringy clot
No true history of kidney stones: patient has passed stringy clot previously but has never recovered a stone
No dysuria, frequency of urgency
Subjective
-
Feels better today
Decreased left flank pain
Objective
-
Vital Signs
Temp Pulse Resp BP Pulse Ox
97.9 F 82 14 163/87 96
05/18/24 11:30 05/18/24 11:00 05/18/24 11:00 05/18/24 11:50 05/18/24 11:00
Intake and Output
05/17/24 05/18/24 05/19/24
06:59 06:59 06:59
Intake Total 1440 / 1440 680 / 680 1404 / 1404
Output Total 400 / 400
Balance 1040 / 1040 680 / 680 1404 / 1404
Intake:
Oral fluids 1440 / 1440
IV fluids (Total) 600 / 600 820 / 820
Nss 1,000 ml @ 110 mls/hr IV . 600 / 600 820 / 820
[id number] JING Rx#:[id number]
IV piggybacks 50 / 50 584 / 584
Output:
Urine, Voided 400 / 400
Other:
Number of approximated MODERATE 1 1
amounts of urine
Laboratory Results
05/18/24 03:57
05/18/24 03:57
Review of Systems
-
Constitutional: Fatigue
Respiratory: Cough
Cardiac: No Symptoms
Abdomen/GI: No Symptoms
: Bleeding
Physical Exam
-
General - well developed, well nourished, no acute distress
Abdomen - soft, decreased LUQ tenderness
Skin - warm & dry with no rash
Neuro - AOx3, no motor deficits
Counseling
-
Needs outpatient gross hematuria evaluation
--- NOTE | 2024-05-18 13:55 | PN.CDI ---
Addendum entered and electronically signed by Jayna Sharpe MD 05/18/24 17:09:
Documentation is complete at this time.
Original Note:
CDI
- -
CDI:
Physician Documentation Request
Admit Date: 05/16/24 15:47
Dear Doctor Annemarie,
Please review the following and provide your response in the progress notes.
Clinical Indicators:
Pt admitted with Abdominal pain and acute thrombocytopenia.
05/18 progress note: ' Staphylococcal bacteremia.'
Selected Entries
05/16/24
13:30 05/16/24
16:30
Temp 100.6
Pulse 117 128
Resp Rate 28 25
05/17/24
03:16
Temp 100.3 F
Pulse 105
Resp Rate 22
Laboratory Tests
05/16/24 05/16/24
13:42 20:25
Lactic Acid 2.8 H 3.2 H
05/16/24 05/16/24 05/17/24
10:33 17:34 05:57
WBC 12.3 H 23.4 H 12.2 H
Please clarify which of the following most accurately describes the status of the patient's infection:
Sepsis
- Systemic manifestations of infection, with 2 or more SIRS criteria which include:
- Fever >100.4 degrees F or hypothermia < 96.8 degrees F
- Leukocytosis - WBC > 12,000 or leukopenia - WBC < 4,000 or > 10% bands
- Tachycardia > 90 beats per minute
- Tachypnea - RR > 20 breaths per minute or PaCO2 , 32mmHg
Source: Merck Manual 2012
Bacteremia Only
- Abnormal lab finding only, does not indicate systemic illness
Other
Use of terms such as suspected, likely, concern for, or probable (associated with a specific diagnosis that is being evaluated, monitored, or treated as if it exists) are acceptable and can be coded in the inpatient setting, when documented at the
time of discharge.
Thank you,
Laura Daley RN, BSN
CDI Specialist
Available via [place] [employer]
Please use your independent medical judgment in providing your response.
[2024-05-18 13:58] LABS: Osmolality Serum 277 mOsm/kg (275-300)
[2024-05-18] MEDS: FLEXERIL 5 MG PO (14:01)
--- NOTE | 2024-05-18 15:37 | CM ---
CM following re: discharge planning.
Reviewed pt's chart, met with pt and pt's son at bedside.
CM spoke to the pt in private, son respectfully left the room.
Pt stated he is not interested to meet with [facility], not interested in inpatient and outpatient D&A rehab programs. Pt made it very clear he made a strong determination to stop drinking and he will do it with respect to himself and his family.
Emotional support with counseling offered and provided and pt expressed his great appreciation.
D/c plan: home with no needs. Family to transport at discharge.
CM will follow with discharge plan updates as needed.
--- NOTE | 2024-05-18 16:14 | CON.ID ---
Consultation
-
Date/Time Consultation Requested: 05/18/2024 08:57
Date/Time Consultation Performed: 05/18/2024 1551
Requesting Provider: Dr. Sharpe
Performing Provider: Dr. Sierra
Reason for Consultation: Bacteremia
Chief Complaint / Past History
History of Present Illness
Jose Velasco is a 53-year-old man being evaluated at the request of Dr. Sharpe in regards to bacteremia. History is obtained from chart review, along with patient interview.
The patient presents to [facility] on 05/16/2024 for evaluation of left rib pain which she noted began early that a.m. Since its onset it has been getting worse although the intensity was reportedly waxing and waning. He reported no other
symptoms other than mild shortness of breath. He denies any dysuria, cough, fevers or chills.
Initial workup in the ER revealed a significant leukocytosis (23 K). He was also found to have an elevated lactate level and transaminitis. Blood cultures obtained at admission are now positive for Staph aureus. Infectious Diseases is asked to
comment upon further antimicrobial management.
Past History
Additional Past Medical History:
Nephrolithiasis
Additional Past Surgical History:
Appendectomy
Allergy History:
No Known Allergies Allergy (Unverified 05/16/24 10:04)
Medications Reviewed: Yes
Current Antibiotics:
Zosyn 3.375 g IV every 6 hours
Vancomycin (dosed per pharmacy)
Social History
Tobacco: Non-Smoker
Alcohol: Daily (10 beers/day)
Drug: None
Personal:
Employment: Employed
Review of Systems
Vital Signs
Temp Pulse Resp BP Pulse Ox
98.2 F 84 15 157/82 96
05/18/24 15:29 05/18/24 14:00 05/18/24 14:00 05/18/24 14:00 05/18/24 13:00
Physical Exam
Physical Exam
Constitutional: No Acute Distress, Comfortable, Non-toxic and Obese
Head: Normocephalic
Eyes: Pupils Equal, Pupils Round, No Conjunctival Hemorrhage and Sclera Anicteric
Oral: No Thrush and No Ulcers
Cardiovascular: S1/S2; Negative S3/S4 or Murmur
Pulmonary: Clear and Non Labored; Negative Wheezes or Rales
Gastrointestinal: Soft, Tender (mild in LUQ), Non Distended, Normal Bowel Sounds, No Rebound and No Guarding
Genito-Urinary: Negative Fenton
Extremities: Edema (trace); Negative Cyanosis, Erythema, Splinter Hemorrhage, Venous Insufficiency or Jan[place]ay Lesions
Musculoskeletal: Negative Joint Swelling or Joint Effusion
Skin: Warm and Dry; Negative Rash or Jaundice
Neurological: Awake, Alert and Oriented
Psychological: Calm
Lab / Diagnostic Study Results
05/18/24 03:57
05/18/24 03:57
Abs Immat Gran (auto) 0.0 10^3/uL (0-0.05) 05/18/24 03:57
Absolute Neuts (auto) 4.3 10^3/uL (1.4-6.5) 05/18/24 03:57
Absolute Lymphs (auto) 1.4 10^3/uL (1.2-3.4) 05/18/24 03:57
Absolute Monos (auto) 0.8 10^3/uL (0.1-0.6) H 05/18/24 03:57
Absolute Basos (auto) 0.0 10^3/uL (0-0.2) 05/18/24 03:57
Immature Gran % 0.3 % (0-0.5) 05/18/24 03:57
Neutrophils % 63.7 % (42.2-75.2) 05/18/24 03:57
Lymphocytes % 21.4 % (20.5-51.1) 05/18/24 03:57
Monocytes % 12.4 % (1.7-9.3) H 05/18/24 03:57
Eosinophils % 1.8 % (0-6) 05/18/24 03:57
Basophils % 0.4 % (0-2) 05/18/24 03:57
PT 15.1 Sec (11.4-14.6) H 05/17/24 18:32
INR 1.20 05/17/24 18:32
Lactic Acid 1.5 mmol/L (0.7-2.0) 05/17/24 01:44
Urine WBC 11-15 /HPF (0-5) A 05/16/24 19:39
Microbiology Results
Micro:
05/18/24 09:45 Blood Culture - Pending
Blood/Venous
05/18/24 09:45 Blood Culture - Pending
Blood/Venous
05/16/24 13:31 Blood Culture - Preliminary
Blood/Venous Staphylococcus aureus
Gram Stain - Preliminary
05/16/24 13:40 Blood Culture - Preliminary
Blood/Venous Positive culture in progress
Gram Stain - Preliminary
Imaging:
05/17/2024 Abdominal ultrasound: Hepatomegaly and increased echogenicity of the liver compatible with underlying hepatocellular disease.
05/16/2024 CT abdomen/pelvis: No large central pulmonary embolism identified. No acute process noted in the chest, abdomen or pelvis. Diffuse hepatic steatosis is noted, though. The spleen, kidneys, adrenal glands and pancreas are all within
normal limits. The gallbladder is present. No abdominal aortic aneurysm.
Assessment / Plan
Staph aureus bacteremia; source unclear
Leukocytosis; improved
Thrombocytopenia
Hyponatremia
Lactic acidosis; improved
Transaminitis
Hx nephrolithiasis
Recommendations:
Continue with vancomycin for the present. Discontinue further Zosyn.
Repeat blood cultures have been obtained; will continue to follow.
Await full sensitivities on recovered isolate's to guide further antimicrobial selection/de-escalation.
Check ESR and CRP in AM.
Care Review
Plan reviewed with: Physician (Critical Care)
[2024-05-18] MEDS: TYLENOL 650 MG PO (16:54)
--- NOTE | 2024-05-18 17:10 | PTCARENOTE ---
Addendum entered by Erin De Souza RN 05/18/24 17:20:
auscultated for minimal crackles. Dr. Bay at bedside- ivf d/c. pt downgraded to tele, full liquid diet started.
Original Note:
ivf d/c per Dr. Bay- breathing treatment given for wheezing.
[2024-05-18] MEDS: TESSALON PERLES 200 MG PO (17:23)
[2024-05-18] MEDS: COLACE PO (20:09)
[2024-05-18] MEDS: VALIUM 5 MG PO (20:09)
[2024-05-18] MEDS: SENOKOT PO (20:09)
[2024-05-18] MEDS: APRESOLINE 5 MG IV (20:13)
[2024-05-18 20:38] LABS: Hepatitis B Surface Antigen Negative (Negative)
[2024-05-18 20:57] LABS: Hepatitis B Core Ab, Total Negative (Negative); Hepatitis B Surface Antibody Positive; Hepatitis C Antibody Negative (Negative)
--- NOTE | 2024-05-18 21:29 | PTCARENOTE ---
assessment unchanged. nsr with 1st degree block, ambulating in room. remains on room air, denies pain at this time.
[2024-05-18 22:02] LABS: Hepatitis A Antibody, Total Negative (Negative)
[2024-05-19] VITALS (10 sets, daily range): BP systolic 148–196; BP diastolic 91–116; BMI 42.1
[2024-05-19] MEDS: THIAMINE INJECTION 200 MG IV ×2 (00:31→08:43)
[2024-05-19 00:36] LABS: Hepatitis B Core Ab, IgM Negative (Negative)
[2024-05-19] MEDS: FLEXERIL 5 MG PO (00:38)
[2024-05-19] MEDS: DILAUDID 1 MG IV ×2 (00:39→06:21)
--- NOTE | 2024-05-19 03:14 | PTCARENOTE ---
Received pt @2300. AOx4, moves all extremities, ambulates on his own. 1st degree HB. 97% RA. Hypoactive bowel sounds in all 4 quadrants. Able to use toilet on his own. Pt c/o pain and tenderness on left side of abdomen, prn Dilaudid administered.
Aside from abdomen pain, skin is dry and intact. Bilateral 20G AC. Safe environment maintained.
[2024-05-19 04:59] LABS: ALT (SGPT) 67 U/L (0-50); AST (SGOT) 83 U/L (17-59); Albumin 3.3 g/dl (3.5-5.0); Alkaline Phosphatase 90 U/L (38-126); Blood Urea Nitrogen 6 mg/dl (9-20); Calcium 8.3 mg/dl (8.4-10.2); Carbon Dioxide 27 mmol/L (22-30); Chloride 104 mmol/L (98-107); Direct Bilirubin 0.4 mg/dl (0.0-0.4); Estimated Creatinine Clearance > 125 ml/min; Glucose 140 mg/dl (70-99); Potassium 3.5 mmol/L (3.5-5.1); Sodium 136 mmol/L (135-145); Total Bilirubin 0.9 mg/dl (0.2-1.3); Total Protein 6.4 g/dl (6.3-8.2); eGFR > 60.00
[2024-05-19 05:12] LABS: % Basophils 0.6 % (0-2); % Eosinophils 2.5 % (0-6); % Immature Granulocytes 0.2 % (0-0.5); % Lymphocytes 33.6 % (20.5-51.1); % Monocytes 12.3 % (1.7-9.3); % Neutrophils 50.8 % (42.2-75.2); Absolute Eosinophils 0.1 10^3/uL (0-0.7); Absolute Lymphocytes 1.8 10^3/uL (1.2-3.4); Absolute Monocytes 0.7 10^3/uL (0.1-0.6); Absolute Neutrophils 2.7 10^3/uL (1.4-6.5); Hemoglobin 13.7 g/dL (13.0-18.0); Mean Corp Hgb Conc. 36.1 g/dL (33.0-37.0); Mean Corpuscular Hgb 35.8 pg (27.0-31.0); Mean Corpuscular Volume 99.2 fL (80.0-94.0); Mean Platelet Volume 10.7 fL (7.4-10.4); Nucleated Red Blood Cells % 0 % (-); Platelet Count 91 10^3/uL (130-400); Red Blood Cell Count 3.83 10^6/uL (4.70-6.10); Red Cell Dist. Width 11.8 % (11.5-14.5); White Blood Cell Count 5.3 10^3/uL (4.8-10.8)
[2024-05-19] MEDS: VANCOCIN 535 MG IV (06:01)
[2024-05-19] MEDS: NORVASC 10 MG PO (08:41)
[2024-05-19] MEDS: FOLVITE 1 MG PO (08:42)
[2024-05-19] MEDS: APRESOLINE 5 MG IV (08:42)
[2024-05-19] MEDS: PROTONIX IV 40 MG IV ×2 (08:42→22:10)
[2024-05-19] MEDS: NSS (PRESERVATIVE FREE) 10 ML IV ×2 (08:43→22:10)
[2024-05-19] MEDS: COLACE PO ×2 (09:46→21:57)
[2024-05-19] MEDS: SENOKOT PO ×2 (09:46→21:57)
--- NOTE | 2024-05-19 10:05 | PHA.VAN.FU ---
Vancomycin Assessment / Plan
- Assessment
Renal Function: SCR Decreasing
WBC's are: WNL
In the past 24 hrs, patient has been: Afebrile
- Dosing Plan
Continue: Vanc 1750mg Q12H
- Monitoring Plan
No level(s) ordered at this time: consider levels in next few days
- Follow Up
Pharmacy will continue to follow.
Vancomycin Follow UP
- -
Patient Age: 53
Patient Sex: Male
Vancomycin Day #: 3
Indication: Bacteremia
Requesting Provider: Dr. Siddiqui / [place]
Pertinent Antimicrobial Allergies:
NKDA
Height / Weight:
Height 5 ft 10 in
Actual Weight 133.2 kg
Pertinent Past Medical History: BMI ~43
- Vital Signs / Lab Results
Temp Pulse Resp BP Pulse Ox
97.8 F 66 10 160/100 94
05/19/24 08:21 05/19/24 07:15 05/18/24 18:00 05/19/24 03:02 05/18/24 20:10
Lab Results - Hematology
05/16/24 05/16/24 05/17/24
10:33 17:34 05:57
WBC 12.3 H 23.4 H 12.2 H
05/18/24 05/19/24
03:57 04:35
WBC 6.7 5.3
Lab Results - Chemistry
05/16/24 05/17/24 05/18/24
10:33 05:57 03:57
BUN 10 21 H 13
Creatinine 0.9 1.6 H 0.9
Estimated Creat Clear > 125 72 > 125
Albumin 4.5 3.8 3.3 L
05/19/24
04:35
BUN 6 L
Creatinine 0.7
Estimated Creat Clear > 125
Albumin 3.3 L
05/16/24 05/16/24 05/17/24
13:42 20:25 01:44
Lactic Acid 2.8 H 3.2 H 1.5
Microbiology Results
05/18/24 09:45 Blood Culture - Preliminary
Blood/Venous No Growth in 24 hours- Final report to follow
05/18/24 09:45 Blood Culture - Preliminary
Blood/Venous No Growth in 24 hours- Final report to follow
05/16/24 13:31 Blood Culture - Preliminary
Blood/Venous Staphylococcus aureus
Gram Stain - Preliminary
05/16/24 13:40 Blood Culture - Preliminary
Blood/Venous Positive culture in progress
Gram Stain - Preliminary
Therapeutic Drug Monitoring
Random Vancomycin 6.7 ug/ml 05/18/24 03:57
--- NOTE | 2024-05-19 10:32 | W.PN.HOSP.TC ---
Today's Communication/Plan
-
MRI L spine
Follow blood Cx
Assessment / Plan
Assessment / Plan
53 y/o male with sudden abdominal pain which woke him up from sleep at 3:30 in the morning. Some nausea but no vomiting. He had a sore throat for the past 2 days prior to mission. He also had some hematuria x 1 constipation for 3 days.
Chest x-ray reviewed by me-small effusions bilaterally. Cardiomegaly. Patchy opacities bilaterally
Ultrasound-hepatomegaly with increased echogenicity in the liver compatible with hepatocellular disease, likely secondary to fatty liver.
CT chest abdomen pelvis-with IV contrast only-no large PE no acute process in the chest abdomen or pelvis
CVS: S1-S2 normal
Chest: CTA B/L
Abdomen: Soft, mild discomfort in the left upper quadrant. Mild paraspinal area tenderness. No spine tenderness noted.
Extremities: No edema
#Acute Abd Pain
Unclear etiology
? Splenic infarct-CAT scan does not support that
Patient has pain on the left paraspinal region-with bacteremia we will proceed with MRI of the lumbar spine with contrast.
Possible peptic ulcer disease/gastritis?-Continue PPI unlikely
Doppler ruled out RV thrombosis
Leukocytosis resolved
Questionable pyelonephritis versus passed stone
Hematuria noted-repeat urinalysis
Continue PPI
Pain control Dilaudid and Zofran as needed for nausea
GI and surgical evaluation appreciated
If no further etiology found may need to repeat CT again with IV and p.o. contrast
# Staphylococcal bacteremia
Source unclear
Echo with no vegetations
Continue with vancomycin
Repeat blood cultures until clearance
Infectious disease consultation appreciated
Continue vancomycin
# Constipation-continue bowel regimen
# Acute kidney injury-resolved
# Hyponatremia-resolved
#Diffuse hepatic steatosis per CT
Transaminitis
Improving but patient also has alcohol use
# Lactic acidosis-lactic Acid 2.8-->3.2-->1.5
#Alcohol abuse
10 beers daily with 6 ounces of whiskey daily
Continue MSAS screen with protocol
Continue Iv thiamine, Iv folate
#Essential HTN
Norvasc started
Blood pressure still elevated
Will start losartan.
Add as needed hydralazine
#Acute thrombocytopenia likely secondary to alcohol depression on bone marrow
Also infection related
Continue to follow platelets
# Hyperglycemia- Check A1C
# Obesity per BMI criteria-42
# DVT prophylaxis-SCDs
# Full code
D/w Son at bed side.
D/W Dr.Thomas Bobby per Pt request
D/w Rn
time spent over 50 min
Anticipated Discharge: 24 - 48 hours
Subjective/Interval History
-
Date of Service: May 19, 2024
Objective Data
-
Labs:
Laboratory Results
05/19/24
04:35
WBC 5.3
Hgb 13.7
Hct 38.0 L
Plt Count 91 L D
Sodium 136
Potassium 3.5
Chloride 104
Carbon Dioxide 27
BUN 6 L
Creatinine 0.7
Glucose 140 H
Calcium 8.3 L
Total Bilirubin 0.9
AST 83 H
ALT 67 H
Alkaline Phosphatase 90
Vital Signs:
Vital Signs
Temp Pulse Resp BP Pulse Ox
97.8 F 66 10 160/100 94
05/19/24 08:21 05/19/24 07:15 05/18/24 18:00 05/19/24 03:02 05/18/24 20:10
I&O
05/18/24 05/19/24 05/20/24
06:59 06:59 06:59
Intake Total 680 / 680 2220
Balance 680 / 680 2220
[2024-05-19 10:34] LABS: Magnesium 1.7 mg/dl (1.6-2.3)
--- NOTE | 2024-05-19 11:14 | W.PN.URO.CBU ---
Today's Communication / Plan
-
No gross hematuria
No dysuria
Assessment / Plan
-
Left flank pain w/o clear etiology
CT scan 05/17/24 reviewed: no stranding around left kidney, no stones, no upper urinary tract distension
Gross hematuria: intermittent
New NADINE 05/17/24: resolved
Trace albumen on urinalysis: doppler US 05/18/24 ruled out left renal vein thrombosis
Diagnosis
-
Date of Service: May 19, 2024
-
Patient Diagnosis:
Left flank pain: sudden onset 05/16/24: improved
Intermittent gross hematuria with passage of stringy clot
No true history of kidney stones: patient has passed stringy clot previously but has never recovered a stone
No dysuria, frequency of urgency
Subjective
-
Pain persists, but is less severe
Objective
-
Vital Signs
Temp Pulse Resp BP Pulse Ox
97.8 F 66 10 160/100 94
05/19/24 08:21 05/19/24 07:15 05/18/24 18:00 05/19/24 03:02 05/18/24 20:10
Intake and Output
05/18/24 05/19/24 05/20/24
06:59 06:59 06:59
Intake Total 680 / 680 2220 / 222
Balance 680 / 680 2220 / 2220
Intake:
Oral fluids
IV fluids (Total) 600 / 600 1370 / 1370
Nss 1,000 ml @ 110 mls/hr IV . 600 / 600 1370 / 1370
Q9H6M JING Rx#:[id number]
IV piggybacks 50 / 50 851 / 851
Other:
Number of approximated MODERATE 1 1
amounts of urine
Laboratory Results
05/19/24 04:35
05/19/24 04:35
Review of Systems
-
Constitutional: No Symptoms
Respiratory: No Symptoms
Cardiac: No Symptoms
Abdomen/GI: Abdominal Pain
: No Symptoms
Neurological: No Symptoms
Physical Exam
-
General - well nourished, no acute distress
Abdomen - soft, tender over left lower ribs
Counseling
-
Reminded patient he will need outpatient evaluation, including cystoscopy, to complete a formal gross hematuria evaluation
[2024-05-19 11:20] LABS: Erythrocyte Sed Rate 40 mm/hour (0-20)
[2024-05-19] MEDS: COZAAR 25 MG PO (12:03)
[2024-05-19 13:33] LABS: Urine Albumin Negative (Neg - Trace); Urine Bilirubin Negative (Negative); Urine Character Clear (Clear); Urine Color Yellow; Urine Glucose 1+ (Negative); Urine Ketone Negative (Negative); Urine Leukocyte Negative (Negative); Urine Nitrite Negative (Negative); Urine Occult Blood 2+ (Negative); Urine Urobilinogen Negative (Neg - 1+)
--- NOTE | 2024-05-19 13:47 | W.PN.ID1 ---
Date of Service
Date of Service: May 19, 2024
Today's Communication
Continue antibiotics. See below�
Assessment / Plan
Staph aureus (MSSA) bacteremia; source unclear
Leukocytosis; improved
Thrombocytopenia
Hyponatremia
Lactic acidosis; improved
Transaminitis
Hx nephrolithiasis
Recommendations:
Narrow to cefazolin.
Repeat blood cultures have been obtained; will continue to follow.
Await full sensitivities on recovered isolate's to guide further antimicrobial selection/de-escalation.
Elevated ESR and CRP noted.
Not clear whether left thorax erythema is shingles or not (no vesicles noted at present), but will initiate empiric Valtrex.
����������������������������������������������������������
Chief Complaint
-: Bacteremia
Subjective / Review of Systems
Patient seen and examined. Notes rash on left thorax today. Has discomfort from approximately the umbilicus around to T7
Review of Systems: No Fever and No Chills
Vital Signs / Physical Exam
Vital Signs
Vital Signs
Temp Pulse Resp BP Pulse Ox
97.9 F 81 10 184/104 94
05/19/24 12:37 05/19/24 12:15 05/18/24 18:00 05/19/24 12:04 05/18/24 20:10
Physical Exam
Constitutional: No Acute Distress, Comfortable and Non-toxic
Eyes: Sclera Anicteric
Cardiovascular: S1/S2; Negative S3/S4
Pulmonary: Non Labored
Gastrointestinal: Soft and Non Distended
Skin: Rash (Erythematous area on the left thorax. No vesicles noted. Tender to touch. Seems to track along the T7 dermatome.)
Neurological: Awake and Alert
Psychological: Calm
Objective Data
Lab Data
Lab Results
05/19/24 04:35
05/19/24 04:35
ESR 40 mm/hour (0-20) H 05/19/24 04:35
PT 15.1 Sec (11.4-14.6) H 05/17/24 18:32
INR 1.20 05/17/24 18:32
APTT 28.9 Sec (23.4-35.0) 05/17/24 18:32
Estimated Creat Clear > 125 ml/min 05/19/24 04:35
Lactic Acid 1.5 mmol/L (0.7-2.0) 05/17/24 01:44
Total Bilirubin 0.9 mg/dl (0.2-1.3) 05/19/24 04:35
GGT 743 U/L (15-73) H 05/16/24 17:34
AST 83 U/L (17-59) H 05/19/24 04:35
ALT 67 U/L (0-50) H 05/19/24 04:35
Alkaline Phosphatase 90 U/L (38-126) 05/19/24 04:35
C-Reactive Protein 86.30 mg/L (0.0-10.00) H 05/19/24 04:35
Most recent labs reviewed.
Micro Results:
05/19/24 12:48 Blood Culture - Pending
Blood/Venous
05/16/24 13:40 Blood Culture - Final
Blood/Venous S aureus-Methicillin Sensitive
Gram Stain - Final
05/16/24 13:31 Blood Culture - Final
Blood/Venous S aureus-Methicillin Sensitive
Gram Stain - Final
05/18/24 09:45 Blood Culture - Preliminary
Blood/Venous No Growth in 24 hours- Final report to follow
05/18/24 09:45 Blood Culture - Preliminary
Blood/Venous No Growth in 24 hours- Final report to follow
Imaging:
05/17/2024 Abdominal ultrasound: Hepatomegaly and increased echogenicity of the liver compatible with underlying hepatocellular disease.
05/16/2024 CT abdomen/pelvis: No large central pulmonary embolism identified. No acute process noted in the chest, abdomen or pelvis. Diffuse hepatic steatosis is noted, though. The spleen, kidneys, adrenal glands and pancreas are all within
normal limits. The gallbladder is present. No abdominal aortic aneurysm.
[2024-05-19 13:49] LABS: Urine White Cell 0-2 /HPF (0-5)
[2024-05-19] MEDS: ANCEF 10 IV ×2 (15:10→22:45)
[2024-05-19] MEDS: VALTREX 1000 MG PO ×2 (15:11→22:06)
--- NOTE | 2024-05-19 15:21 | PTCARENOTE ---
Pt reports feeling better today. Reports pain improved. Appetite improved. Left flank area reddened. MD made aware. Pt transferred to MRI via wheelchair.
[2024-05-19] MEDS: MAGNESIUM OXIDE 500 MG PO (20:13)
--- NOTE | 2024-05-19 20:35 | PTCARENOTE ---
Pt transferred from ICU. ambulatory in the room with steady gait. aaox3, cooperative. Left flank red/flat rash, states 'it hurts a little if you press really hard on that area'. oriented to room. call asher within reach.
[2024-05-19] MEDS: VITAMIN B1 100 MG PO (22:05)
[2024-05-19] MEDS: VALIUM 5 MG PO (22:06)
[2024-05-20] VITALS (8 sets, daily range): BP systolic 147–189; BP diastolic 80–113
[2024-05-20] MEDS: ANCEF 10 IV ×3 (06:03→22:12)
[2024-05-20 06:11] LABS: % Basophils 0.5 % (0-2); % Eosinophils 2.3 % (0-6); % Immature Granulocytes 0.4 % (0-0.5); % Lymphocytes 35.1 % (20.5-51.1); % Monocytes 13.8 % (1.7-9.3); % Neutrophils 47.9 % (42.2-75.2); Absolute Eosinophils 0.1 10^3/uL (0-0.7); Absolute Monocytes 0.8 10^3/uL (0.1-0.6); Absolute Neutrophils 2.7 10^3/uL (1.4-6.5); Hematocrit 39.2 % (39.0-52.0); Hemoglobin 14.3 g/dL (13.0-18.0); Mean Corp Hgb Conc. 36.5 g/dL (33.0-37.0); Mean Corpuscular Hgb 36.1 pg (27.0-31.0); Mean Platelet Volume 10.2 fL (7.4-10.4); Nucleated Red Blood Cells % 0 % (-); Platelet Count 117 10^3/uL (130-400); Red Blood Cell Count 3.96 10^6/uL (4.70-6.10); Red Cell Dist. Width 11.7 % (11.5-14.5); White Blood Cell Count 5.6 10^3/uL (4.8-10.8)
[2024-05-20 07:26] LABS: ALT (SGPT) 68 U/L (0-50); AST (SGOT) 68 U/L (17-59); Albumin 3.5 g/dl (3.5-5.0); Alkaline Phosphatase 99 U/L (38-126); Blood Urea Nitrogen 8 mg/dl (9-20); Calcium 8.6 mg/dl (8.4-10.2); Carbon Dioxide 29 mmol/L (22-30); Chloride 104 mmol/L (98-107); Estimated Creatinine Clearance > 125 ml/min; Glucose 139 mg/dl (70-99); Potassium 3.2 mmol/L (3.5-5.1); Sodium 138 mmol/L (135-145); Total Bilirubin 0.8 mg/dl (0.2-1.3); Total Protein 6.4 g/dl (6.3-8.2); eGFR > 60.00
[2024-05-20] MEDS: VALTREX 1000 MG PO ×3 (08:29→22:12)
[2024-05-20] MEDS: MAGNESIUM OXIDE 500 MG PO (08:29)
[2024-05-20] MEDS: NSS (PRESERVATIVE FREE) 10 ML IV (08:30)
[2024-05-20] MEDS: KCL 40 MEQ PO (08:30)
[2024-05-20] MEDS: COLACE PO ×2 (08:30→21:21)
[2024-05-20] MEDS: SENOKOT PO ×2 (08:30→21:21)
[2024-05-20] MEDS: VITAMIN B1 100 MG PO ×2 (08:30→22:12)
[2024-05-20] MEDS: FOLVITE 1 MG PO (08:30)
[2024-05-20] MEDS: APRESOLINE 5 MG IV (08:31)
[2024-05-20] MEDS: PROTONIX IV 40 MG IV (08:31)
[2024-05-20] MEDS: NORVASC 10 MG PO (08:34)
[2024-05-20] MEDS: COZAAR 25 MG PO ×2 (08:34→12:42)
[2024-05-20] MEDS: TYLENOL 650 MG PO (08:57)
[2024-05-20] MEDS: FLEXERIL 5 MG PO (08:57)
[2024-05-20 09:00] LABS: Glycohemoglobin (HgbA1c) 7.7 % (4.0-5.6)
--- NOTE | 2024-05-20 09:21 | W.PN.URO.CBU ---
Today's Communication / Plan
-
Will see patient next as outpatient to plan cystoscopy
Assessment / Plan
-
Left flank pain w/o clear etiology
CT scan 05/17/24 reviewed: no stranding around left kidney, no stones, no upper urinary tract distension
Gross hematuria: intermittent
New NADINE 05/17/24: resolved
Trace albumen on urinalysis: doppler US 05/18/24 ruled out left renal vein thrombosis
Diagnosis
-
Date of Service: May 20, 2024
-
Patient Diagnosis:
Left flank pain: sudden onset 05/16/24: improved
Intermittent gross hematuria with passage of stringy clot over the last 1-2 years
No true history of kidney stones: patient has passed stringy clot previously but has never recovered a stone
No dysuria, frequency of urgency
Subjective
-
Feeling better each day
Objective
-
Vital Signs
Temp Pulse Resp BP Pulse Ox
98.1 F 91 19 163/113 96
05/20/24 08:00 05/20/24 08:34 05/20/24 08:00 05/20/24 08:34 05/20/24 08:00
Intake and Output
05/19/24 05/20/24 05/21/24
06:59 06:59 06:59
Intake Total 222 / 2221 960 / 960
Balance 2221 / 2221 960 / 960
Intake:
Oral fluids 960 / 960
IV fluids (Total) 1370 / 1370
Nss 1,000 ml @ 110 mls/hr IV . 1370 / 1370
Q9H6M JING Rx#:[id number]
IV piggybacks 851 / 851
Other:
Number of approximated MODERATE 1 3
amounts of urine
Number of approximated LARGE 2
amounts of urine
Laboratory Results
05/20/24 05:47
05/20/24 05:47
Review of Systems
-
Constitutional: No Symptoms
Respiratory: No Symptoms
Cardiac: No Symptoms
Abdomen/GI: Pain
: No Symptoms
Neurological: No Symptoms
Physical Exam
-
General - well developed, well nourished, no acute distress
Abdomen - soft, no rash, less tender over left lowest ribs
Genitalia - normal
Skin - warm & dry with no rash
Neuro - AOx3, no motor deficits
[2024-05-20 09:36] LABS: Magnesium 1.6 mg/dl (1.6-2.3)
[2024-05-20] MEDS: MAGNESIUM SULFATE 102 GRAMS IV (10:43)
--- NOTE | 2024-05-20 11:14 | W.PN.ID1 ---
Date of Service
Date of Service: May 20, 2024
Today's Communication
Continue abx.
Assessment / Plan
Staph aureus (MSSA) bacteremia
- cultures positive 05/16 & 05/18
- source unclear
Leukocytosis; improved
Thrombocytopenia
Hyponatremia
Lactic acidosis; improved
Transaminitis
Hx nephrolithiasis
Recommendations:
Continue with cefazolin.
Repeat blood cultures have been obtained; will continue to follow.
Elevated ESR and CRP noted.
Left thorax erythema slightly improved today. Continue with Valtrex.
Repeat blood culture obtained yesterday. Will continue to follow.
����������������������������������������������������������
Chief Complaint
-: Bacteremia (MSSA)
Subjective / Review of Systems
Review of Systems: No Fever and No Chills
Vital Signs / Physical Exam
Vital Signs
Vital Signs
Temp Pulse Resp BP Pulse Ox
98.1 F 81 19 189/106 96
05/20/24 08:00 05/20/24 10:35 05/20/24 08:00 05/20/24 10:35 05/20/24 08:00
Physical Exam
Constitutional: No Acute Distress, Comfortable, Non-toxic and Obese
Eyes: No Conjunctival Hemorrhage and Sclera Anicteric
Cardiovascular: Regular Rate and S1/S2; Negative S3/S4 or Murmur
Pulmonary: Clear and Non Labored; Negative Wheezes, Rales or Rhonchi
Gastrointestinal: Soft, Non Tender and Non Distended
Extremities: Negative Edema, Cyanosis, Erythema, Splinter Hemorrhage or Janeway Lesions
Neurological: Awake and Alert
Psychological: Calm
Objective Data
Lab Data
Lab Results
05/20/24 05:47
05/20/24 05:47
ESR 40 mm/hour (0-20) H 05/19/24 04:35
PT 15.1 Sec (11.4-14.6) H 05/17/24 18:32
INR 1.20 05/17/24 18:32
APTT 28.9 Sec (23.4-35.0) 05/17/24 18:32
Estimated Creat Clear > 125 ml/min 05/20/24 05:47
Lactic Acid 1.5 mmol/L (0.7-2.0) 05/17/24 01:44
Total Bilirubin 0.8 mg/dl (0.2-1.3) 05/20/24 05:47
GGT 743 U/L (15-73) H 05/16/24 17:34
AST 68 U/L (17-59) H 05/20/24 05:47
ALT 68 U/L (0-50) H 05/20/24 05:47
Alkaline Phosphatase 99 U/L (38-126) 05/20/24 05:47
C-Reactive Protein 86.30 mg/L (0.0-10.00) H 05/19/24 04:35
Most recent labs reviewed.
Micro Results:
05/18/24 09:45 Blood Culture - Preliminary
Blood/Venous No Growth in 48 hours- Final report to follow
05/18/24 09:45 Blood Culture - Preliminary
Blood/Venous S aureus-Methicillin Sensitive
Gram Stain - Preliminary
05/19/24 12:48 Blood Culture - Pending
Blood/Venous
05/16/24 13:40 Blood Culture - Final
Blood/Venous S aureus-Methicillin Sensitive
Gram Stain - Final
05/16/24 13:31 Blood Culture - Final
Blood/Venous S aureus-Methicillin Sensitive
Gram Stain - Final
Imaging:
05/19/2024 MRI (lumbar spine): No epidural abscess noted.
05/18/2024 ECHO (TTE) : no vegetation noted. No valvular disease appreciated.
05/17/2024 Abdominal ultrasound: Hepatomegaly and increased echogenicity of the liver compatible with underlying hepatocellular disease.
05/16/2024 CT abdomen/pelvis: No large central pulmonary embolism identified. No acute process noted in the chest, abdomen or pelvis. Diffuse hepatic steatosis is noted, though. The spleen, kidneys, adrenal glands and pancreas are all within
normal limits. The gallbladder is present. No abdominal aortic aneurysm.
--- NOTE | 2024-05-20 11:57 | W.PN.HOSP.TC ---
Today's Communication/Plan
-
Repeat CT
Diabetic education
Increse Losartan
Assessment / Plan
Assessment / Plan
53 y/o male with sudden abdominal pain which woke him up from sleep at 3:30 in the morning. Some nausea but no vomiting. He had a sore throat for the past 2 days prior to mission. He also had some hematuria x 1 constipation for 3 days.
Chest x-ray reviewed by me-small effusions bilaterally. Cardiomegaly. Patchy opacities bilaterally
Ultrasound-hepatomegaly with increased echogenicity in the liver compatible with hepatocellular disease, likely secondary to fatty liver.
CT chest abdomen pelvis-with IV contrast only-no large PE no acute process in the chest abdomen or pelvis
CVS: S1-S2 normal
Chest: CTA B/L
Abdomen: Soft, mild discomfort in the left upper quadrant. No rashes or blisters
No extremity edema
#Acute Abd Pain
Unclear etiology
? Splenic infarct-CAT scan does not support that
Possible peptic ulcer disease/gastritis?-Continue PPI unlikely
Doppler ruled out RV thrombosis
No rashes or blisters-On Valtrex per ID
Leukocytosis resolved
Questionable passed stone-kidney enhancing normally per discussion with radiologist
Hematuria noted-repeat urinalysis also shows that
Continue PPI
Pain improving
Discussed with the patient I will repeat CAT scan with p.o. and IV contrast
# Staphylococcal bacteremia
Source unclear
Echo with no vegetations
Continue with vancomycin
Repeat blood cultures until clearance
Infectious disease consultation appreciated
Continue vancomycin
# Hypokalemia-replace
Replace low normal magnesium
# New diagnosis of diabetes-patient made aware
Diet and exercise and weight loss discussed
Diabetic education consult-patient needs to learn how to do Accu-Cheks
He will benefit from metformin however will hold with IV contrast
Start [address]
Dietary consult
# Constipation-continue bowel regimen hopefully will have a bowel movement after p.o. contrast
# Acute kidney injury-resolved
# Hyponatremia-resolved
#Diffuse hepatic steatosis per CT
Transaminitis
Improving but patient also has alcohol use
# Lactic acidosis-lactic Acid 2.8-->3.2-->1.5
#Alcohol abuse
10 beers daily with 6 ounces of whiskey daily
Continue MSAS screen with protocol
Continue Iv thiamine, Iv folate
#Essential HTN
Norvasc started
Increased dose of losartan with a now dose
Add as needed hydralazine
#Acute thrombocytopenia likely secondary to alcohol depression on bone marrow
Also infection related
Continue to follow platelets
# Obesity per BMI criteria-42
# DVT prophylaxis-SCDs
And Lovenox
# Full code
D/w brother at bed side
D/W Radiologist
D/w Rn
time spent over 50 min
Anticipated Discharge: 24 - 48 hours
Subjective/Interval History
-
Date of Service: May 20, 2024
Objective Data
-
Labs:
Laboratory Results
05/20/24
05:47
WBC 5.6
Hgb 14.3
Hct 39.2
Plt Count 117 L D
Sodium 138
Potassium 3.2 L
Chloride 104
Carbon Dioxide 29
BUN 8 L
Creatinine 0.9
Glucose 139 H
Calcium 8.6
Total Bilirubin 0.8
AST 68 H
ALT 68 H
Alkaline Phosphatase 99
Vital Signs:
Vital Signs
Temp Pulse Resp BP Pulse Ox
97.7 F 91 18 162/108 94
05/20/24 11:00 05/20/24 11:00 05/20/24 11:00 05/20/24 11:00 05/20/24 11:00
I&O
05/19/24 05/20/24 05/21/24
06:59 06:59 06:59
Intake Total 2220 / 2220 960 / 960
Balance 2220 960 / 960
[2024-05-20 12:32] LABS: Glucose - Point of Care 109 mg/dl (70-99)
[2024-05-20] MEDS: OMNIPAQUE 50 ML PO (12:40)
--- NOTE | 2024-05-20 14:01 | PN.DE ---
Diabetes Education
- -
05/20/2024
Diabetes Education Consult:
Met with Mr. Kee for glucose monitor instructions with his son at bedside. Current A1C 7.7%. Pt states he has a family hx of [id number].
Discussed A1C and average blood sugar of 180, diabetes related short and mcc complications, life style modification and self management at home.
Provided with Contour Next EZ glucometer, instructions with good return demonstration, result 110 mg/dl before lunch.
Discussed testing pattern and expected results and information marked in the take home booklet. Discussed and reviewed importance of reducing CHO intake, being active and checking BS to assess food/medication effect on his BS. Encourage physical
activity and benefit of losing weight.
Discussed OP DSME classes and encouraged him to attend.
Pt is currently not on any diabetes medications-awaiting repeat CT A/P with contrast.
Discussed plan of care including medications for management at home with Pt, encouraged pt to discuss management options with SGLT2 and GLP1 with his PCP after discharge.
Will need RX for test strips and lancets for the Contour Next EZ, testing 2x/day at discharge.
--- NOTE | 2024-05-20 15:20 | CM ---
Case management following for d/c planning
Chart reviewed
Remains on IV antibiotics
Urology and ID following
Diabetic teaching
CM will follow for d/c needs
Plan - anticipate home no needs
[2024-05-20 16:40] LABS: Glucose - Point of Care 173 mg/dl (70-99)
[2024-05-20] MEDS: LOVENOX 40 MG SC (17:16)
[2024-05-20] MEDS: DILAUDID 0.5 MG IV ×2 (17:33→22:16)
[2024-05-20 21:40] LABS: Glucose - Point of Care 130 mg/dl (70-99)
[2024-05-20] MEDS: PROTONIX 40 MG PO (22:12)
[2024-05-21] MEDS: DILAUDID 0.5 MG IV ×3 (03:02→21:52)
[2024-05-21 03:04] VITALS: BP 165/96
[2024-05-21] MEDS: APRESOLINE 5 MG IV (05:38)
[2024-05-21] MEDS: ANCEF 10 IV ×3 (05:39→21:52)
[2024-05-21 06:35] LABS: % Basophils 0.6 % (0-2); % Immature Granulocytes 0.6 % (0-0.5); % Lymphocytes 40.8 % (20.5-51.1); % Monocytes 11.2 % (1.7-9.3); % Neutrophils 43.8 % (42.2-75.2); Absolute Eosinophils 0.2 10^3/uL (0-0.7); Absolute Lymphocytes 2.2 10^3/uL (1.2-3.4); Absolute Monocytes 0.6 10^3/uL (0.1-0.6); Absolute Neutrophils 2.3 10^3/uL (1.4-6.5); Hematocrit 38.8 % (39.0-52.0); Mean Corp Hgb Conc. 36.1 g/dL (33.0-37.0); Mean Corpuscular Hgb 35.7 pg (27.0-31.0); Mean Platelet Volume 10.8 fL (7.4-10.4); Nucleated Red Blood Cells % 0 % (-); Platelet Count 123 10^3/uL (130-400); Red Blood Cell Count 3.92 10^6/uL (4.70-6.10); Red Cell Dist. Width 11.9 % (11.5-14.5); White Blood Cell Count 5.3 10^3/uL (4.8-10.8)
[2024-05-21 06:49] LABS: ALT (SGPT) 54 U/L (0-50); AST (SGOT) 54 U/L (17-59); Albumin 3.3 g/dl (3.5-5.0); Alkaline Phosphatase 93 U/L (38-126); Blood Urea Nitrogen 10 mg/dl (9-20); Calcium 8.8 mg/dl (8.4-10.2); Carbon Dioxide 28 mmol/L (22-30); Chloride 103 mmol/L (98-107); Estimated Creatinine Clearance > 125 ml/min; Glucose 126 mg/dl (70-99); Magnesium 1.8 mg/dl (1.6-2.3); Potassium 3.4 mmol/L (3.5-5.1); Sodium 137 mmol/L (135-145); Total Bilirubin 0.7 mg/dl (0.2-1.3); Total Protein 6.2 g/dl (6.3-8.2); eGFR > 60.00
[2024-05-21 07:58] LABS: Glucose - Point of Care 170 mg/dl (70-99)
[2024-05-21 08:00] VITALS: BP 158/90
[2024-05-21 08:05] LABS: Erythrocyte Sed Rate 39 mm/hour (0-20)
[2024-05-21] MEDS: COZAAR 50 MG PO (08:25)
[2024-05-21] MEDS: PROTONIX 40 MG PO ×2 (08:25→20:40)
[2024-05-21] MEDS: FOLVITE 1 MG PO (08:25)
[2024-05-21] MEDS: NORVASC 10 MG PO (08:25)
[2024-05-21] MEDS: VALTREX 1000 MG PO (08:25)
[2024-05-21] MEDS: MAGNESIUM OXIDE 500 MG PO (08:25)
[2024-05-21] MEDS: VITAMIN B1 100 MG PO ×2 (08:25→20:40)
[2024-05-21] MEDS: SENOKOT PO ×2 (08:27→20:39)
[2024-05-21] MEDS: COLACE PO ×2 (08:27→20:39)
[2024-05-21] MEDS: KCL 40 MEQ PO (10:19)
[2024-05-21 11:00] VITALS: BP 147/93
[2024-05-21 13:01] LABS: Glucose - Point of Care 118 mg/dl (70-99)
--- NOTE | 2024-05-21 13:42 | W.PN.ID1 ---
Date of Service
Date of Service: May 21, 2024
Today's Communication
Continue abx.
Assessment / Plan
Staph aureus (MSSA) bacteremia
- cultures positive 05/16 & 05/18
- source unclear
Leukocytosis; improved
Thrombocytopenia
Hyponatremia
Lactic acidosis; improved
Transaminitis
Left 9th/11th rib fractures
Hx nephrolithiasis
Recommendations:
Continue with cefazolin.
Repeat blood cultures have been obtained; will continue to follow.
Elevated ESR and CRP noted.
Findings on CAT scan noted, given these findings, shingles is unlikely. Will discontinue further Valtrex.
����������������������������������������������������������
Chief Complaint
-: Bacteremia (MSSA)
Subjective / Review of Systems
Review of Systems: No Fever and No Chills
Vital Signs / Physical Exam
Vital Signs
Vital Signs
Temp Pulse Resp BP Pulse Ox
98 F 78 19 147/93 95
05/21/24 11:00 05/21/24 11:00 05/21/24 11:00 05/21/24 11:00 05/21/24 11:00
Physical Exam
Constitutional: No Acute Distress, Comfortable and Non-toxic
Eyes: No Conjunctival Hemorrhage and Sclera Anicteric
Cardiovascular: Regular Rate and S1/S2; Negative S3/S4 or Murmur
Pulmonary: Clear and Non Labored; Negative Wheezes, Rales or Rhonchi
Gastrointestinal: Soft, Non Tender and Non Distended
Extremities: Negative Edema, Cyanosis, Erythema, Splinter Hemorrhage or Janeway Lesions
Skin: Other (still with left thorax mild erythema and tenderness.)
Neurological: Awake and Alert
Psychological: Calm
Objective Data
Lab Data
Lab Results
05/21/24 05:25
05/21/24 05:25
ESR 39 mm/hour (0-20) H 05/21/24 05:25
PT 15.1 Sec (11.4-14.6) H 05/17/24 18:32
INR 1.20 05/17/24 18:32
APTT 28.9 Sec (23.4-35.0) 05/17/24 18:32
Estimated Creat Clear > 125 ml/min 05/21/24 05:25
Lactic Acid 1.5 mmol/L (0.7-2.0) 05/17/24 01:44
Total Bilirubin 0.7 mg/dl (0.2-1.3) 05/21/24 05:25
GGT 743 U/L (15-73) H 05/16/24 17:34
AST 54 U/L (17-59) 05/21/24 05:25
ALT 54 U/L (0-50) H 05/21/24 05:25
Alkaline Phosphatase 93 U/L (38-126) 05/21/24 05:25
C-Reactive Protein 46.90 mg/L (0.0-10.00) H 05/21/24 05:25
Most recent labs reviewed.
Micro Results:
05/19/24 12:48 Blood Culture - Preliminary
Blood/Venous No Growth in 48 hours- Final report to follow
05/20/24 12:37 Blood Culture - Preliminary
Blood/Venous No Growth in 24 hours- Final report to follow
05/18/24 09:45 Blood Culture - Preliminary
Blood/Venous No Growth in 72 hours- Final report to follow
05/18/24 09:45 Blood Culture - Preliminary
Blood/Venous S aureus-Methicillin Sensitive
Gram Stain - Preliminary
05/16/24 13:40 Blood Culture - Final
Blood/Venous S aureus-Methicillin Sensitive
Gram Stain - Final
05/16/24 13:31 Blood Culture - Final
Blood/Venous S aureus-Methicillin Sensitive
Gram Stain - Final
Imaging:
05/20/2024 CT abdomen/pelvis with IV contrast: 20 left lower effusion noted. A subacute, now mildly displaced, fracture of the lateral left 11th rib. With a stable subacute mildly displaced ninth left rib fracture noted.
05/19/2024 MRI (lumbar spine): No epidural abscess noted.
05/18/2024 ECHO (TTE) : no vegetation noted. No valvular disease appreciated.
05/17/2024 Abdominal ultrasound: Hepatomegaly and increased echogenicity of the liver compatible with underlying hepatocellular disease.
05/16/2024 CT abdomen/pelvis: No large central pulmonary embolism identified. No acute process noted in the chest, abdomen or pelvis. Diffuse hepatic steatosis is noted, though. The spleen, kidneys, adrenal glands and pancreas are all within
normal limits. The gallbladder is present. No abdominal aortic aneurysm.
[2024-05-21 15:00] VITALS: BP 147/92
--- NOTE | 2024-05-21 15:57 | W.PN.HOSP.TC ---
Today's Communication/Plan
-
discharge planning per ID rec
Assessment / Plan
Assessment / Plan
53 y/o male with sudden abdominal pain which woke him up from sleep at 3:30 in the morning. Some nausea but no vomiting. He had a sore throat for the past 2 days prior to mission. He also had some hematuria x 1 constipation for 3 days.
Chest x-ray reviewed by me-small effusions bilaterally. Cardiomegaly. Patchy opacities bilaterally
Ultrasound-hepatomegaly with increased echogenicity in the liver compatible with hepatocellular disease, likely secondary to fatty liver.
CT chest abdomen pelvis-with IV contrast only-no large PE no acute process in the chest abdomen or pelvis
CVS: S1-S2 normal
Chest: CTA B/L
Abdomen: Soft, mild discomfort in the left upper quadrant. No rashes or blisters
No extremity edema
# Staphylococcal bacteremia-MSSA
Source unclear
Echo with no vegetations
Continue with Ancef
Repeat blood cultures until clearance
Infectious disease consultation appreciated
#Acute Abd Pain
from rib fracture
#Hematuria noted-repeat urinalysis also shows that-OP cysto
Prostatic hypertrophy noted.
Mild diffuse bladder wall thickening noted
# Hypokalemia-replace
Replace low normal magnesium
# New diagnosis of diabetes-patient made aware
Diet and exercise and weight loss discussed
Diabetic education consult-patient needs to learn how to do Accu-Cheks
He will benefit from metformin however will hold with IV contrast
Start [address]
Dietary consult
# Constipation-Resolved. continue bowel regimen
# Acute kidney injury-resolved
# Hyponatremia-resolved
#Diffuse hepatic steatosis per CT
Transaminitis
Improving but patient also has alcohol use
# Lactic acidosis-lactic Acid 2.8-->3.2-->1.5
#Alcohol abuse
10 beers daily with 6 ounces of whiskey daily
Continue MSAS screen with protocol
Continue Iv thiamine, Iv folate
#Essential HTN-BP better
Norvasc started
Increased dose of losartan
Add as needed hydralazine
#Acute thrombocytopenia likely secondary to alcohol depression on bone marrow
Also infection related
Continue to follow platelets-Improving
# Obesity per BMI criteria-42
# DVT prophylaxis-SCDs
And Lovenox
# Full code
D/w father and son at bed side
D/W Radiologist re CT
D/w Rn
D/W ID
time spent over 50 min
Anticipated Discharge: Within 24 hours
Subjective/Interval History
-
Date of Service: May 21, 2024
Objective Data
-
Labs:
Laboratory Results
05/21/24
05:25
WBC 5.3
Hgb 14.0
Hct 38.8 L
Plt Count 123 L
Sodium 137
Potassium 3.4 L
Chloride 103
Carbon Dioxide 28
BUN 10
Creatinine 0.9
Glucose 126 H
Calcium 8.8
Total Bilirubin 0.7
AST 54
ALT 54 H
Alkaline Phosphatase 93
Vital Signs:
Vital Signs
Temp Pulse Resp BP Pulse Ox
98 F 78 19 147/93 95
05/21/24 11:00 05/21/24 11:00 05/21/24 11:00 05/21/24 11:00 05/21/24 11:00
I&O
05/20/24 05/21/24 05/22/24
06:59 06:59 06:59
Intake Total 960 / 960 960 / 960
Balance 960 / 960 960 / 960
[2024-05-21] MEDS: LOVENOX 40 MG SC (17:03)
[2024-05-21 21:37] LABS: Glucose - Point of Care 126 mg/dl (70-99)
[2024-05-21 23:40] VITALS: BP 158/102
[2024-05-22] MEDS: ANCEF 10 IV ×3 (06:00→21:05)
--- NOTE | 2024-05-22 06:32 | PTCARENOTE ---
Pt awake most of the night, unable to sleep. pt offers no complaints other than not being able to sleep. Pt walking around room. Pt awaiting plan of care. Will continue to monitor.
[2024-05-22 07:45] VITALS: BP 168/105
[2024-05-22 07:59] LABS: Glucose - Point of Care 123 mg/dl (70-99)
[2024-05-22] MEDS: COZAAR 50 MG PO (08:49)
[2024-05-22] MEDS: NORVASC 10 MG PO (08:50)
[2024-05-22] MEDS: MAGNESIUM OXIDE 500 MG PO (08:50)
[2024-05-22] MEDS: FOLVITE 1 MG PO (08:50)
[2024-05-22] MEDS: VITAMIN B1 100 MG PO ×2 (08:51→21:05)
[2024-05-22] MEDS: PROTONIX 40 MG PO ×2 (08:52→21:05)
[2024-05-22] MEDS: COLACE PO ×2 (08:59→21:04)
[2024-05-22] MEDS: SENOKOT PO ×2 (08:59→21:04)
[2024-05-22] MEDS: DILAUDID 0.5 MG IV (09:44)
[2024-05-22 10:08] VITALS: BP 158/97
--- NOTE | 2024-05-22 10:11 | W.PN.ID1 ---
Date of Service
Date of Service: May 22, 2024
Today's Communication
Continue antibiotics. See below�
Assessment / Plan
Staph aureus (MSSA) bacteremia
- cultures positive 05/16 & 05/18
Leukocytosis; improved
Thrombocytopenia
Hyponatremia
Lactic acidosis; improved
Transaminitis
Left 9th/11th rib fractures
Hx nephrolithiasis
Recommendations:
Repeat blood cultures are negative from 05/19 onward.
Elevated ESR and CRP noted.
Continue with cefazolin.
Treatment of MSSA bacteremia discussed with patient. Will proceed with a 4-week course of therapy from first negative blood culture.
Home infusion sheet placed on paper chart. Can place PICC line once home infusion has been set up.
����������������������������������������������������������
Chief Complaint
-: Bacteremia (MSSA)
Subjective / Review of Systems
Patient seen and examined. Reports feeling well.
Review of Systems: No Fever and No Chills
Vital Signs / Physical Exam
Vital Signs
Vital Signs
Temp Pulse Resp BP Pulse Ox
97.6 F 89 18 158/97 96
05/22/24 07:45 05/22/24 10:08 05/22/24 07:45 05/22/24 10:08 05/22/24 07:45
Physical Exam
Constitutional: No Acute Distress, Comfortable, Non-toxic and Obese
Eyes: No Conjunctival Hemorrhage and Sclera Anicteric
Cardiovascular: Regular Rate and S1/S2; Negative S3/S4 or Murmur
Pulmonary: Clear and Non Labored; Negative Wheezes, Rales or Rhonchi
Gastrointestinal: Soft, Non Tender and Non Distended
Extremities: Negative Edema, Cyanosis, Erythema, Splinter Hemorrhage or Janeway Lesions
Skin: Other (still with left thorax mild erythema and tenderness.)
Neurological: Awake and Alert
Psychological: Calm
Objective Data
Lab Data
Lab Results
05/21/24 05:25
05/21/24 05:25
ESR 39 mm/hour (0-20) H 05/21/24 05:25
PT 15.1 Sec (11.4-14.6) H 05/17/24 18:32
INR 1.20 05/17/24 18:32
APTT 28.9 Sec (23.4-35.0) 05/17/24 18:32
Estimated Creat Clear > 125 ml/min 05/21/24 05:25
Lactic Acid 1.5 mmol/L (0.7-2.0) 05/17/24 01:44
Total Bilirubin 0.7 mg/dl (0.2-1.3) 05/21/24 05:25
GGT 743 U/L (15-73) H 05/16/24 17:34
AST 54 U/L (17-59) 05/21/24 05:25
ALT 54 U/L (0-50) H 05/21/24 05:25
Alkaline Phosphatase 93 U/L (38-126) 05/21/24 05:25
C-Reactive Protein 46.90 mg/L (0.0-10.00) H 05/21/24 05:25
Most recent labs reviewed.
Micro Results:
05/18/24 09:45 Blood Culture - Preliminary
Blood/Venous No Growth in 4 days- Final report to follow
05/19/24 12:48 Blood Culture - Preliminary
Blood/Venous No Growth in 48 hours- Final report to follow
05/20/24 12:37 Blood Culture - Preliminary
Blood/Venous No Growth in 24 hours- Final report to follow
05/18/24 09:45 Blood Culture - Preliminary
Blood/Venous S aureus-Methicillin Sensitive
Gram Stain - Preliminary
05/16/24 13:40 Blood Culture - Final
Blood/Venous S aureus-Methicillin Sensitive
Gram Stain - Final
05/16/24 13:31 Blood Culture - Final
Blood/Venous S aureus-Methicillin Sensitive
Gram Stain - Final
Imaging:
05/20/2024 CT abdomen/pelvis with IV contrast: 20 left lower effusion noted. A subacute, now mildly displaced, fracture of the lateral left 11th rib. With a stable subacute mildly displaced ninth left rib fracture noted.
05/19/2024 MRI (lumbar spine): No epidural abscess noted.
05/18/2024 ECHO (TTE) : no vegetation noted. No valvular disease appreciated.
05/17/2024 Abdominal ultrasound: Hepatomegaly and increased echogenicity of the liver compatible with underlying hepatocellular disease.
05/16/2024 CT abdomen/pelvis: No large central pulmonary embolism identified. No acute process noted in the chest, abdomen or pelvis. Diffuse hepatic steatosis is noted, though. The spleen, kidneys, adrenal glands and pancreas are all within
normal limits. The gallbladder is present. No abdominal aortic aneurysm.
--- NOTE | 2024-05-22 11:11 | CM ---
Addendum entered by Monica Tejeda 05/22/24 15:30:
Faxed order sheet and reaction sheet to outpatient infusion center [phone]
Plan - [facility] for IV antibiotics - to start 05/26/2024
Addendum entered by Monica Tejeda 05/22/24 11:38:
Spoke with Yasmin at [facility] - she will see pt
Spoke with Kristina at [facility] - discussed pt needs
Original Note:
Case management following for d/c planning
Notified pt with need home infusion for IV antibiotics
Spoke with pt - he reports he does not have insurance
Called and spoke with admissions to verify insurance
Per Olga Lidia in admissions pts account to be updated and info sent to [facility]
Dr Sierra made aware
[2024-05-22 11:46] LABS: Glucose - Point of Care 170 mg/dl (70-99)
--- NOTE | 2024-05-22 12:01 | W.PN.HOSP.TC ---
Today's Communication/Plan
-
Case management working on home infusion
Assessment / Plan
Assessment / Plan
53 y/o male with sudden abdominal pain which woke him up from sleep at 3:30 in the morning. Some nausea but no vomiting. He had a sore throat for the past 2 days prior to mission. He also had some hematuria x 1 constipation for 3 days.
Chest x-ray reviewed by me-small effusions bilaterally. Cardiomegaly. Patchy opacities bilaterally
Ultrasound-hepatomegaly with increased echogenicity in the liver compatible with hepatocellular disease, likely secondary to fatty liver.
CT chest abdomen pelvis-with IV contrast only-no large PE no acute process in the chest abdomen or pelvis
CVS: S1-S2 normal
Chest: CTA B/L
Abdomen: Soft, mild discomfort in the left upper quadrant. No rashes or blisters
No extremity edema
# Staphylococcal bacteremia-MSSA
Source unclear
Echo with no vegetations
Continue with Ancef
Repeat blood cultures until clearance
AB duration per ID
#Acute Abd Pain
from rib fracture
Slowly getting better
#Hematuria noted-repeat urinalysis also shows that-OP cysto
Prostatic hypertrophy noted.
Mild diffuse bladder wall thickening noted
# Hypokalemia-replace
Replace low normal magnesium
# New diagnosis of diabetes-patient made aware
Diet and exercise and weight loss discussed
Diabetic education consult-patient learned how to do Accu-Cheks
He will benefit from metformin however will hold
Sugars are stable
# Constipation-Resolved. continue bowel regimen
# Acute kidney injury-resolved
# Hyponatremia-resolved
#Diffuse hepatic steatosis per CT
Transaminitis
Improving but patient also has alcohol use
# Lactic acidosis-lactic Acid 2.8-->3.2-->1.5
#Alcohol abuse
10 beers daily with 6 ounces of whiskey daily
Continue MSAS screen with protocol
Continue Iv thiamine, Iv folate
#Essential HTN-BP better
Norvasc started
Increased dose of losartan
Add as needed hydralazine
#Acute thrombocytopenia likely secondary to alcohol depression on bone marrow
Also infection related
Continue to follow platelets-Improving
# Obesity per BMI criteria-42
# DVT prophylaxis-SCDs
And Lovenox
# Full code
D/w case management
D/w Rn
Anticipated Discharge: > 48 hours
Subjective/Interval History
-
Date of Service: May 22, 2024
Objective Data
-
Vital Signs:
Vital Signs
Temp Pulse Resp BP Pulse Ox
97.6 F 89 18 158/97 96
05/22/24 07:45 05/22/24 10:08 05/22/24 07:45 05/22/24 10:08 05/22/24 07:45
I&O
05/21/24 05/22/24 05/23/24
06:59 06:59 06:59
Intake Total 960 / 960 4060 / 4060
Balance 960 / 960 4060 / 4060
[2024-05-22] MEDS: ULTRAM 50 MG PO ×2 (15:28→21:05)
[2024-05-22 15:45] VITALS: BP 149/86
[2024-05-22 16:50] LABS: Glucose - Point of Care 112 mg/dl (70-99)
[2024-05-22] MEDS: LOVENOX 40 MG SC (17:18)
[2024-05-22 20:58] LABS: Glucose - Point of Care 108 mg/dl (70-99)
[2024-05-22 23:25] VITALS: BP 145/88
[2024-05-23] MEDS: ANCEF 10 IV (05:14)
[2024-05-23] MEDS: ULTRAM 50 MG PO ×3 (05:14→20:09)
[2024-05-23 07:00] VITALS: BP 166/104
[2024-05-23] MEDS: COLACE PO ×2 (07:50→19:41)
[2024-05-23] MEDS: FOLVITE 1 MG PO (07:51)
[2024-05-23] MEDS: PROTONIX 40 MG PO ×2 (07:51→20:09)
[2024-05-23] MEDS: MAGNESIUM OXIDE 500 MG PO (07:51)
[2024-05-23] MEDS: VITAMIN B1 100 MG PO ×2 (07:51→20:09)
[2024-05-23] MEDS: SENOKOT PO ×2 (07:51→19:41)
[2024-05-23] MEDS: NORVASC 10 MG PO (07:52)
[2024-05-23] MEDS: COZAAR 50 MG PO (07:52)
[2024-05-23 07:57] LABS: Glucose - Point of Care 147 mg/dl (70-99)
[2024-05-23 09:26] LABS: Blood Urea Nitrogen 16 mg/dl (9-20); Calcium 9.1 mg/dl (8.4-10.2); Carbon Dioxide 29 mmol/L (22-30); Chloride 102 mmol/L (98-107); Estimated Creatinine Clearance 116 ml/min; Glucose 105 mg/dl (70-99); Magnesium 1.8 mg/dl (1.6-2.3); Potassium 3.5 mmol/L (3.5-5.1); Sodium 138 mmol/L (135-145); eGFR > 60.00
[2024-05-23 09:42] LABS: Hematocrit 41.6 % (39.0-52.0); Mean Corp Hgb Conc. 36.1 g/dL (33.0-37.0); Mean Corpuscular Hgb 36.5 pg (27.0-31.0); Mean Corpuscular Volume 101.2 fL (80.0-94.0); Mean Platelet Volume 10.5 fL (7.4-10.4); Platelet Count 137 10^3/uL (130-400); Red Blood Cell Count 4.11 10^6/uL (4.70-6.10); Red Cell Dist. Width 11.8 % (11.5-14.5); White Blood Cell Count 5.6 10^3/uL (4.8-10.8)
[2024-05-23] MEDS: COZAAR 25 MG PO (10:00)
--- NOTE | 2024-05-23 10:41 | W.PN.URO.CBU ---
Today's Communication / Plan
-
no gu ontervention
Assessment / Plan
-
Left flank pain w/o clear etiology
CT scan 05/17/24 reviewed: no stranding around left kidney, no stones, no upper urinary tract distension
Gross hematuria: intermittent
New NADINE 05/17/24: resolved
Trace albumen on urinalysis: doppler US 05/18/24 ruled out left renal vein thrombosis
Diagnosis
-
Date of Service: May 23, 2024
-
Patient Diagnosis:
Post Op Day:
Patient Diagnosis:
Left flank pain: sudden onset 05/16/24: improved
Intermittent gross hematuria with passage of stringy clot over the last 1-2 years
No true history of kidney stones: patient has passed stringy clot previously but has never recovered a stone
No dysuria, frequency of urgency
Subjective
-
asx hemturiax 1 oksana-y before asdmit and 1 month eafrlier
Objective
-
Vital Signs
Temp Pulse Resp BP Pulse Ox
97.4 F 81 16 166/104 95
05/23/24 07:00 05/23/24 07:00 05/23/24 07:00 05/23/24 07:00 05/23/24 07:00
Intake and Output
05/22/24 05/23/24 05/24/24
06:59 06:59 06:59
Intake Total 4060 / 4060 1819
Balance 4060 / 4060 1819
Intake:
Oral fluids 4060 / 4060 1819
Other:
Number of approximated MODERATE 2 5
amounts of urine
How many times incontinent 9
MODERATE amount urine
Number of unmeasured liquid
stools
Rectum 1
Laboratory Results
05/23/24 05:57
05/23/24 05:57
Review of Systems
-
: No Symptoms
Musculoskeletal: No Symptoms
Physical Exam
-
General - well developed, well nourished, no acute distress
Chest - clear bilaterally
Abdomen - soft, non-tender, positive bowel sounds, no CVAT, no incisional pain or distention
Genitalia - normal
Rectal - normal
Skin - warm & dry with no rash
Neuro - AOx3, no motor deficits
Extremities - no clubbing, no cyanosis, no edema
Incision - clean, dry
Dressing - clean, dry, intact
Care Review
Data Reviewed
CT Scan: Image Pers Reviewed
--- NOTE | 2024-05-23 11:03 | W.PN.ID1 ---
Date of Service
Date of Service: May 23, 2024
Today's Communication
Continue antibiotics. See below�
Assessment / Plan
Staph aureus (MSSA) bacteremia
- cultures positive 05/16 & 05/18
- repeat cultures negative
Leukocytosis; improved
Thrombocytopenia
Hyponatremia
Lactic acidosis; improved
Transaminitis
Left 9th/11th rib fractures
Hx nephrolithiasis
Recommendations:
Repeat blood cultures are negative from 05/19 onward.
Prior elevated ESR and CRP noted.
Case discussed with case management yesterday. It appears that patient does not have insurance and thus home infusion is not an option.
Will transition to daptomycin
Paperwork filled out for outpatient infusion center.
Can place PICC line once outpatient infusion has been set up.
����������������������������������������������������������
Chief Complaint
-: Bacteremia (MSSA)
Subjective / Review of Systems
Review of Systems: No Fever and No Chills
Vital Signs / Physical Exam
Vital Signs
Vital Signs
Temp Pulse Resp BP Pulse Ox
97.4 F 81 16 166/104 95
05/23/24 07:00 05/23/24 07:00 05/23/24 07:00 05/23/24 07:00 05/23/24 07:00
Physical Exam
Constitutional: No Acute Distress, Comfortable and Non-toxic
Eyes: Sclera Anicteric
Pulmonary: Clear and Non Labored
Gastrointestinal: Soft and Non Distended
Skin: Other (Left thorax erythema improved.)
Neurological: Awake and Alert
Psychological: Calm
Objective Data
Lab Data
Lab Results
05/23/24 05:57
05/23/24 05:57
ESR 39 mm/hour (0-20) H 05/21/24 05:25
PT 15.1 Sec (11.4-14.6) H 05/17/24 18:32
INR 1.20 05/17/24 18:32
APTT 28.9 Sec (23.4-35.0) 05/17/24 18:32
Estimated Creat Clear 116 ml/min 05/23/24 05:57
Lactic Acid 1.5 mmol/L (0.7-2.0) 05/17/24 01:44
Total Bilirubin 0.7 mg/dl (0.2-1.3) 05/21/24 05:25
GGT 743 U/L (15-73) H 05/16/24 17:34
AST 54 U/L (17-59) 05/21/24 05:25
ALT 54 U/L (0-50) H 05/21/24 05:25
Alkaline Phosphatase 93 U/L (38-126) 05/21/24 05:25
C-Reactive Protein 46.90 mg/L (0.0-10.00) H 05/21/24 05:25
Most recent labs reviewed.
Micro Results:
05/18/24 09:45 Blood Culture - Final
Blood/Venous No Growth - Final Report
05/19/24 12:48 Blood Culture - Preliminary
Blood/Venous No Growth in 72 hours- Final report to follow
05/20/24 12:37 Blood Culture - Preliminary
Blood/Venous No Growth in 48 hours- Final report to follow
05/18/24 09:45 Blood Culture - Preliminary
Blood/Venous S aureus-Methicillin Sensitive
Gram Stain - Preliminary
05/16/24 13:40 Blood Culture - Final
Blood/Venous S aureus-Methicillin Sensitive
Gram Stain - Final
05/16/24 13:31 Blood Culture - Final
Blood/Venous S aureus-Methicillin Sensitive
Gram Stain - Final
Imaging:
05/20/2024 CT abdomen/pelvis with IV contrast: 20 left lower effusion noted. A subacute, now mildly displaced, fracture of the lateral left 11th rib. With a stable subacute mildly displaced ninth left rib fracture noted.
05/19/2024 MRI (lumbar spine): No epidural abscess noted.
05/18/2024 ECHO (TTE) : no vegetation noted. No valvular disease appreciated.
05/17/2024 Abdominal ultrasound: Hepatomegaly and increased echogenicity of the liver compatible with underlying hepatocellular disease.
05/16/2024 CT abdomen/pelvis: No large central pulmonary embolism identified. No acute process noted in the chest, abdomen or pelvis. Diffuse hepatic steatosis is noted, though. The spleen, kidneys, adrenal glands and pancreas are all within
normal limits. The gallbladder is present. No abdominal aortic aneurysm.
[2024-05-23 12:39] LABS: Glucose - Point of Care 117 mg/dl (70-99)
[2024-05-23] MEDS: CUBICIN 20 MG IV (14:09)
[2024-05-23 15:00] VITALS: BP 149/95
--- NOTE | 2024-05-23 15:23 | PTCARENOTE ---
patient medicated with PRN Tramadol for continued c/o left upper abd pain radiating under left rib around to flank area, tolerating diet, independent in room, showered, vss, will continue to monitor.
--- NOTE | 2024-05-23 15:43 | W.PN.HOSP.TC ---
Today's Communication/Plan
-
Infusion to be set up and discharge saturday
Assessment / Plan
Assessment / Plan
53 y/o male with sudden abdominal pain which woke him up from sleep at 3:30 in the morning. Some nausea but no vomiting. He had a sore throat for the past 2 days prior to mission. He also had some hematuria x 1 constipation for 3 days.
Chest x-ray reviewed by me-small effusions bilaterally. Cardiomegaly. Patchy opacities bilaterally
Ultrasound-hepatomegaly with increased echogenicity in the liver compatible with hepatocellular disease, likely secondary to fatty liver.
CT chest abdomen pelvis-with IV contrast only-no large PE no acute process in the chest abdomen or pelvis
CVS: S1-S2 normal
Chest: CTA B/L
Abdomen: Soft, mild discomfort in the left upper quadrant. No rashes or blisters
No extremity edema
# Staphylococcal bacteremia-MSSA
Source unclear
Echo with no vegetations
Continue with Ancef
Repeat blood cultures until clearance
AB duration per ID
#Acute Abd Pain
from rib fracture
Slowly getting better
#Hematuria noted-repeat urinalysis also shows that-OP cysto
Prostatic hypertrophy noted.
Mild diffuse bladder wall thickening noted
# Hypokalemia-replaced
Replaced low normal magnesium
# New diagnosis of diabetes-patient made aware
Diet and exercise and weight loss discussed
Diabetic education consult-patient learned how to do Accu-Cheks
He will benefit from metformin however will hold
Sugars are stable
# Constipation-Resolved. continue bowel regimen
# Acute kidney injury-resolved
# Hyponatremia-resolved
#Diffuse hepatic steatosis per CT
Transaminitis
Improving but patient also has alcohol use
# Lactic acidosis-lactic Acid 2.8-->3.2-->1.5
#Alcohol abuse
10 beers daily with 6 ounces of whiskey daily
Continue MSAS screen with protocol
Continue Iv thiamine, Iv folate
#Essential HTN-BP better
Norvasc started
Increased dose of losartan
Add as needed hydralazine
#Acute thrombocytopenia likely secondary to alcohol depression on bone marrow
Also infection related
Continue to follow platelets-Improving
# Obesity per BMI criteria-42
# DVT prophylaxis-SCDs
And Lovenox
# Full code
D/w ID
D/w Rn
Anticipated Discharge: 24 - 48 hours
Subjective/Interval History
-
Date of Service: May 23, 2024
Objective Data
-
Labs:
Laboratory Results
05/23/24
05:57
WBC 5.6
Hgb 15.0
Hct 41.6
Plt Count 137
Sodium 138
Potassium 3.5
Chloride 102
Carbon Dioxide 29
BUN 16
Creatinine 1.0
Glucose 105 H
Calcium 9.1
Vital Signs:
Vital Signs
Temp Pulse Resp BP Pulse Ox
97.4 F 81 16 166/104 95
05/23/24 07:00 05/23/24 07:00 05/23/24 07:00 05/23/24 07:00 05/23/24 07:00
I&O
05/22/24 05/23/24 05/24/24
06:59 06:59 06:59
Intake Total 4060 / 4060 1820 / 1820
Balance 4060 / 4060 1820 / 1820
[2024-05-23] MEDS: LOVENOX 40 MG SC (17:13)
[2024-05-23 17:35] LABS: Glucose - Point of Care 96 mg/dl (70-99)
[2024-05-23 21:36] LABS: Glucose - Point of Care 93 mg/dl (70-99)
[2024-05-23 23:43] VITALS: BP 132/94
[2024-05-24 07:53] LABS: Glucose - Point of Care 108 mg/dl (70-99)
[2024-05-24] MEDS: COLACE PO ×2 (07:53→20:03)
[2024-05-24] MEDS: SENOKOT PO ×2 (07:54→20:03)
[2024-05-24] MEDS: PROTONIX 40 MG PO ×2 (07:55→20:03)
[2024-05-24] MEDS: FOLVITE 1 MG PO (07:55)
[2024-05-24] MEDS: VITAMIN B1 100 MG PO ×2 (07:55→20:03)
[2024-05-24] MEDS: COZAAR 75 MG PO (07:55)
[2024-05-24] MEDS: NORVASC 10 MG PO (07:55)
[2024-05-24] MEDS: MAGNESIUM OXIDE 500 MG PO (07:55)
[2024-05-24 08:00] VITALS: BP 164/110
[2024-05-24 11:04] LABS: Creatine Phosphokinase 58 U/L (55-170)
[2024-05-24 11:38] LABS: Glucose - Point of Care 99 mg/dl (70-99)
--- NOTE | 2024-05-24 11:38 | W.PN.ID1 ---
Date of Service
Date of Service: May 24, 2024
Today's Communication
Continue abx.
Assessment / Plan
Staph aureus (MSSA) bacteremia
- cultures positive 05/16 & 05/18
- repeat cultures negative
Leukocytosis; improved
Thrombocytopenia
Hyponatremia
Lactic acidosis; improved
Transaminitis
Left 9th/11th rib fractures
Hx nephrolithiasis
Recommendations:
Repeat blood cultures are negative from 05/19 onward.
Prior elevated ESR and CRP noted.
Case discussed with case management yesterday. It appears that patient does not have insurance and thus home infusion is not an option.
Continue daptomycin
Paperwork filled out for outpatient infusion center.
Check baseline CPK
PICC line once outpatient infusion has been set up.
����������������������������������������������������������
Chief Complaint
-: Bacteremia (MSSA)
Subjective / Review of Systems
Review of Systems: No Fever, No Chills and Joint Pain
Vital Signs / Physical Exam
Vital Signs
Vital Signs
Temp Pulse Resp BP Pulse Ox
97.3 F 74 18 164/110 95
05/24/24 08:00 05/24/24 08:00 05/24/24 08:00 05/24/24 08:00 05/24/24 08:00
Physical Exam
Constitutional: No Acute Distress
Eyes: Sclera Anicteric
Pulmonary: Clear and Non Labored
Gastrointestinal: Soft and Non Distended
Skin: Other (Left thorax erythema improved.)
Neurological: Awake and Alert
Psychological: Calm
Objective Data
Lab Data
Lab Results
05/23/24 05:57
05/23/24 05:57
ESR 39 mm/hour (0-20) H 05/21/24 05:25
PT 15.1 Sec (11.4-14.6) H 05/17/24 18:32
INR 1.20 05/17/24 18:32
APTT 28.9 Sec (23.4-35.0) 05/17/24 18:32
Estimated Creat Clear 116 ml/min 05/23/24 05:57
Lactic Acid 1.5 mmol/L (0.7-2.0) 05/17/24 01:44
Total Bilirubin 0.7 mg/dl (0.2-1.3) 05/21/24 05:25
GGT 743 U/L (15-73) H 05/16/24 17:34
AST 54 U/L (17-59) 05/21/24 05:25
ALT 54 U/L (0-50) H 05/21/24 05:25
Alkaline Phosphatase 93 U/L (38-126) 05/21/24 05:25
C-Reactive Protein 46.90 mg/L (0.0-10.00) H 05/21/24 05:25
Most recent labs reviewed.
Micro Results:
05/19/24 12:48 Blood Culture - Preliminary
Blood/Venous No Growth in 4 days- Final report to follow
05/20/24 12:37 Blood Culture - Preliminary
Blood/Venous No Growth in 72 hours- Final report to follow
05/18/24 09:45 Blood Culture - Final
Blood/Venous No Growth - Final Report
05/18/24 09:45 Blood Culture - Preliminary
Blood/Venous S aureus-Methicillin Sensitive
Gram Stain - Preliminary
05/16/24 13:40 Blood Culture - Final
Blood/Venous S aureus-Methicillin Sensitive
Gram Stain - Final
05/16/24 13:31 Blood Culture - Final
Blood/Venous S aureus-Methicillin Sensitive
Gram Stain - Final
Imaging:
05/20/2024 CT abdomen/pelvis with IV contrast: 20 left lower effusion noted. A subacute, now mildly displaced, fracture of the lateral left 11th rib. With a stable subacute mildly displaced ninth left rib fracture noted.
05/19/2024 MRI (lumbar spine): No epidural abscess noted.
05/18/2024 ECHO (TTE) : no vegetation noted. No valvular disease appreciated.
05/17/2024 Abdominal ultrasound: Hepatomegaly and increased echogenicity of the liver compatible with underlying hepatocellular disease.
05/16/2024 CT abdomen/pelvis: No large central pulmonary embolism identified. No acute process noted in the chest, abdomen or pelvis. Diffuse hepatic steatosis is noted, though. The spleen, kidneys, adrenal glands and pancreas are all within
normal limits. The gallbladder is present. No abdominal aortic aneurysm.
[2024-05-24 12:02] VITALS: BP 137/83
[2024-05-24] MEDS: ROXICODONE 10 MG PO (12:05)
[2024-05-24] MEDS: CUBICIN 20 MG IV (12:06)
[2024-05-24] MEDS: FLUSH (NSS) 2 FLUSH IV (12:07)
--- NOTE | 2024-05-24 13:06 | W.PN.HOSP.TC ---
Today's Communication/Plan
-
OP Infusion to be set up
Picc before discharge
Assessment / Plan
Assessment / Plan
53 y/o male with sudden abdominal pain which woke him up from sleep at 3:30 in the morning. Some nausea but no vomiting. He had a sore throat for the past 2 days prior to mission. He also had some hematuria x 1 constipation for 3 days.
Chest x-ray reviewed by me-small effusions bilaterally. Cardiomegaly. Patchy opacities bilaterally
Ultrasound-hepatomegaly with increased echogenicity in the liver compatible with hepatocellular disease, likely secondary to fatty liver.
CT chest abdomen pelvis-with IV contrast only-no large PE no acute process in the chest abdomen or pelvis
CVS: S1-S2 normal
Chest: CTA B/L
Abdomen: Soft, mild discomfort in the left upper quadrant. No rashes or blisters
No extremity edema
# Staphylococcal bacteremia-MSSA
Source unclear
Echo with no vegetations
Continue with Ancef
Repeat blood cultures until clearance
IV AB duration per ID
#Acute Abd Pain
from rib fracture
Slowly getting better
#Hematuria noted-repeat urinalysis also shows that-OP cysto
Prostatic hypertrophy noted.
Mild diffuse bladder wall thickening noted
# Hypokalemia-replaced
Replaced low normal magnesium
# New diagnosis of diabetes-patient made aware
Diet and exercise and weight loss discussed
Diabetic education consult-patient learned how to do Accu-Cheks
Sugars are stable
# Constipation-Resolved. continue bowel regimen
# Acute kidney injury-resolved
# Hyponatremia-resolved
#Diffuse hepatic steatosis per CT
Transaminitis
Improving but patient also has alcohol use
# Lactic acidosis-lactic Acid 2.8-->3.2-->1.5
#Alcohol abuse
10 beers daily with 6 ounces of whiskey daily
Continue MSAS screen with protocol
Continue thiamine, folate
#Essential HTN-BP better
Norvasc started
Increased dose of losartan
Add as needed hydralazine
#Acute thrombocytopenia likely secondary to alcohol depression on bone marrow
Also infection related
back to normal
# Obesity per BMI criteria-42
# DVT prophylaxis- Lovenox
# Full code
D/w ID
D/w RN
Anticipated Discharge: 24 - 48 hours
Subjective/Interval History
-
Date of Service: May 24, 2024
Objective Data
-
Vital Signs:
Vital Signs
Temp Pulse Resp BP Pulse Ox
97.3 F 86 18 137/83 95
05/24/24 08:00 05/24/24 12:02 05/24/24 08:00 05/24/24 12:02 05/24/24 08:00
I&O
05/23/24 05/24/24 05/25/24
06:59 06:59 06:59
Intake Total 1820 / 1820 1600 / 1600
Balance 1820 / 1820 1600 / 1600
[2024-05-24 15:00] VITALS: BP 133/87
[2024-05-24 16:29] LABS: Glucose - Point of Care 122 mg/dl (70-99)
[2024-05-24] MEDS: LOVENOX 40 MG SC (17:13)
[2024-05-24] MEDS: ULTRAM 50 MG PO (19:22)
[2024-05-24 21:18] LABS: Glucose - Point of Care 101 mg/dl (70-99)
[2024-05-24 23:00] VITALS: BP 124/79
[2024-05-25 07:00] VITALS: BP 152/94
[2024-05-25 07:55] LABS: Glucose - Point of Care 116 mg/dl (70-99)
[2024-05-25 08:08] LABS: Hematocrit 44.3 % (39.0-52.0); Hemoglobin 15.9 g/dL (13.0-18.0); Mean Corp Hgb Conc. 35.9 g/dL (33.0-37.0); Mean Corpuscular Hgb 36.1 pg (27.0-31.0); Mean Corpuscular Volume 100.5 fL (80.0-94.0); Mean Platelet Volume 9.9 fL (7.4-10.4); Platelet Count 182 10^3/uL (130-400); Red Blood Cell Count 4.41 10^6/uL (4.70-6.10); Red Cell Dist. Width 11.6 % (11.5-14.5); White Blood Cell Count 6.8 10^3/uL (4.8-10.8)
[2024-05-25 08:29] LABS: Blood Urea Nitrogen 18 mg/dl (9-20); Calcium 9.4 mg/dl (8.4-10.2); Carbon Dioxide 30 mmol/L (22-30); Chloride 100 mmol/L (98-107); Creatine Phosphokinase 68 U/L (55-170); Estimated Creatinine Clearance 105 ml/min; Glucose 116 mg/dl (70-99); Magnesium 1.9 mg/dl (1.6-2.3); Potassium 3.9 mmol/L (3.5-5.1); Sodium 139 mmol/L (135-145); eGFR > 60.00
[2024-05-25] MEDS: MAGNESIUM OXIDE 500 MG PO (08:56)
[2024-05-25] MEDS: VITAMIN B1 100 MG PO (08:56)
[2024-05-25] MEDS: FOLVITE 1 MG PO (08:56)
[2024-05-25] MEDS: COZAAR 75 MG PO (08:57)
[2024-05-25] MEDS: PROTONIX 40 MG PO (08:57)
[2024-05-25] MEDS: NORVASC 10 MG PO (08:57)
[2024-05-25] MEDS: SENOKOT PO (08:58)
[2024-05-25] MEDS: COLACE PO (08:58)
--- NOTE | 2024-05-25 09:54 | CM ---
Addendum entered by Monica Tejeda 05/25/24 11:43:
Pt for discharge today after line placement and receiving antibiotic
Given phone number for Outpatient Infusion Center and informed of scheduled appointment time
Pt reports he has ride to home
Plan - home with daily f/u with outpatient infusion center
Original Note:
Case management following for d/c planning
Spoke with Gali at the Infusion Center
Confirmed - pt accepted at center to complete IV antibiotics
Center confirmed pt to start 05/26/2024 at 10:45 AM
--- NOTE | 2024-05-25 09:58 | W.PN.ID1 ---
Date of Service
Date of Service: May 25, 2024
Today's Communication
Continue abx.
Assessment / Plan
Staph aureus (MSSA) bacteremia
- cultures positive 05/16 & 05/18
- repeat cultures x 72h & 96h
Leukocytosis; improved
Thrombocytopenia
Hyponatremia
Lactic acidosis; improved
Transaminitis
Left 9th/11th rib fractures
Hx nephrolithiasis
Recommendations:
Repeat blood cultures are negative from 05/19 onward.
Prior elevated ESR and CRP noted.
Case discussed with case management yesterday. It appears that patient does not have insurance and thus home infusion is not an option.
Continue daptomycin
Paperwork filled out for outpatient infusion center; patient to start tomorrow
Check baseline CPK
PICC line ordered.
����������������������������������������������������������
Chief Complaint
-: Bacteremia (MSSA)
Subjective / Review of Systems
Review of Systems: No Fever and No Chills
Vital Signs / Physical Exam
Vital Signs
Vital Signs
Temp Pulse Resp BP Pulse Ox
97.5 F 87 17 152/94 95
05/25/24 07:00 05/25/24 07:00 05/25/24 07:00 05/25/24 07:00 05/25/24 07:00
Physical Exam
Constitutional: No Acute Distress, Comfortable and Non-toxic
Eyes: No Conjunctival Hemorrhage and Sclera Anicteric
Cardiovascular: S1/S2; Negative S3/S4 or Murmur
Pulmonary: Non Labored
Gastrointestinal: Soft, Non Tender and Non Distended
Extremities: Negative Splinter Hemorrhage or Venous Insufficiency
Neurological: Awake and Alert
Psychological: Calm
Objective Data
Lab Data
Lab Results
05/25/24 07:38
05/25/24 07:38
ESR 39 mm/hour (0-20) H 05/21/24 05:25
PT 15.1 Sec (11.4-14.6) H 05/17/24 18:32
INR 1.20 05/17/24 18:32
APTT 28.9 Sec (23.4-35.0) 05/17/24 18:32
Estimated Creat Clear 105 ml/min 05/25/24 07:38
Lactic Acid 1.5 mmol/L (0.7-2.0) 05/17/24 01:44
Total Bilirubin 0.7 mg/dl (0.2-1.3) 05/21/24 05:25
GGT 743 U/L (15-73) H 05/16/24 17:34
AST 54 U/L (17-59) 05/21/24 05:25
ALT 54 U/L (0-50) H 05/21/24 05:25
Alkaline Phosphatase 93 U/L (38-126) 05/21/24 05:25
C-Reactive Protein 46.90 mg/L (0.0-10.00) H 05/21/24 05:25
Most recent labs reviewed.
Micro Results:
05/19/24 12:48 Blood Culture - Final
Blood/Venous No Growth - Final Report
05/20/24 12:37 Blood Culture - Preliminary
Blood/Venous No Growth in 4 days- Final report to follow
05/18/24 09:45 Blood Culture - Final
Blood/Venous No Growth - Final Report
05/18/24 09:45 Blood Culture - Preliminary
Blood/Venous S aureus-Methicillin Sensitive
Gram Stain - Preliminary
05/16/24 13:40 Blood Culture - Final
Blood/Venous S aureus-Methicillin Sensitive
Gram Stain - Final
05/16/24 13:31 Blood Culture - Final
Blood/Venous S aureus-Methicillin Sensitive
Gram Stain - Final
Imaging:
05/20/2024 CT abdomen/pelvis with IV contrast: 20 left lower effusion noted. A subacute, now mildly displaced, fracture of the lateral left 11th rib. With a stable subacute mildly displaced ninth left rib fracture noted.
05/19/2024 MRI (lumbar spine): No epidural abscess noted.
05/18/2024 ECHO (TTE) : no vegetation noted. No valvular disease appreciated.
05/17/2024 Abdominal ultrasound: Hepatomegaly and increased echogenicity of the liver compatible with underlying hepatocellular disease.
05/16/2024 CT abdomen/pelvis: No large central pulmonary embolism identified. No acute process noted in the chest, abdomen or pelvis. Diffuse hepatic steatosis is noted, though. The spleen, kidneys, adrenal glands and pancreas are all within
normal limits. The gallbladder is present. No abdominal aortic aneurysm.
Care Review
Plan reviewed with: Physician (Hospitalist)
--- NOTE | 2024-05-25 10:28 | W.PN.HOSP.TC ---
Today's Communication/Plan
-
d/c
Assessment / Plan
Assessment / Plan
53 y/o male with sudden abdominal pain which woke him up from sleep at 3:30 in the morning. Some nausea but no vomiting. He had a sore throat for the past 2 days prior to mission. He also had some hematuria x 1 constipation for 3 days.
Gen: NAD, AAOx3.
Eyes: EOMI, PERRLA, no scleral icterus.
Neck: supple.
CV: RRR, +S1/S2, no m/r/g.
Resp: CTAB, no rales, wheezes, or rhonchi.
Abd: +BS, soft, NT, ND
Skin: No rashes.
Neuro: CN 2-12 intact, non-focal.
Psych: Normal mood and affect.
05/19/24 12:48 Blood/Venous Blood Culture - Final
No Growth - Final Report
05/20/24 12:37 Blood/Venous Blood Culture - Preliminary
No Growth in 4 days- Final report to follow
05/18/24 09:45 Blood/Venous Blood Culture - Final
No Growth - Final Report
05/18/24 09:45 Blood/Venous Blood Culture - Preliminary
S aureus-Methicillin Sensitive
05/18/24 09:45 Blood/Venous Gram Stain - Preliminary
05/16/24 13:40 Blood/Venous Blood Culture - Final
S aureus-Methicillin Sensitive
05/16/24 13:40 Blood/Venous Gram Stain - Final
05/16/24 13:31 Blood/Venous Blood Culture - Final
S aureus-Methicillin Sensitive
05/16/24 13:31 Blood/Venous Gram Stain - Final
Chest x-ray reviewed by me-small effusions bilaterally. Cardiomegaly. Patchy opacities bilaterally
Ultrasound-hepatomegaly with increased echogenicity in the liver compatible with hepatocellular disease, likely secondary to fatty liver.
CT chest abdomen pelvis-with IV contrast only-no large PE no acute process in the chest abdomen or pelvis
MSSA bacteremia:
-source unclear
-echo without vegetations
-BCxs have cleared
-was on Ancef, now on Dapto as per ID through 06/16/24
-PICC today
DM2:
-new dx this admission
Alcohol abuse disorder:
-10 beers daily with 6 ounces of whiskey daily
-was on MSAS protocol
-cont thiamine/folate
-Diffuse hepatic steatosis per CT, transaminitis, mild, improved. Encourage alcohol cessation, outpt f/u.
-Thrombocytopenia has resolved most likely due to alcohol abuse disorder
Essential hypertension:
-cont Norvasc/Losartan
Other problems:
Acute Abd Pain due to rib fx
Hematuria, outpt uro f/u
Hypokalemia, resolved
Acute kidney injury, resolved
Hyponatremia, resolved
Lactic acidosis, resolved
Morbid obesity due to excess calories
FULL/Lovenox
Total time spent on d/c = 36 min. This included today's physical exam, progress note, review of laboratory and diagnostic data, preparation of discharge documents and prescriptions, and discussions about the pt's hospital course and discharge plan
with the patient and other medical claims analyst involved in the patient's care.
Anticipated Discharge: Today
Subjective/Interval History
-
Date of Service: May 25, 2024
No new complaints.
Objective Data
-
Labs:
Laboratory Results
05/25/24
07:38
WBC 6.8
Hgb 15.9
Hct 44.3
Plt Count 182 D
Sodium 139
Potassium 3.9
Chloride 100
Carbon Dioxide 30
BUN 18
Creatinine 1.1
Glucose 116 H
Calcium 9.4
Vital Signs:
Vital Signs
Temp Pulse Resp BP Pulse Ox
97.5 F 87 17 152/94 95
05/25/24 07:00 05/25/24 07:00 05/25/24 07:00 05/25/24 07:00 05/25/24 07:00
I&O
05/24/24 05/25/24 05/26/24
06:59 06:59 06:59
Intake Total 1600 / 1600 1620 / 1620 480 / 480
Balance 1600 / 1600 1620 / 1620 480 / 480
[2024-05-25 11:22] LABS: Glucose - Point of Care 99 mg/dl (70-99)
[2024-05-25] MEDS: CUBICIN 20 MG IV (12:15)
--- NOTE | 2024-05-25 15:07 | W.DCSUMMARY ---
Discharge Summary
Discharge Data
Date of Admission: 05/16/24
Date of Discharge: 05/25/24
-
Pending Results: No
Hospital Course
Primary diagnoses:
Methicillin sensitive Staphylococcus aureus bacteremia
Essential hypertension
Type 2 diabetes mellitus
Alcohol abuse disorder
Secondary diagnoses:
Hepatic steatosis
Acute transaminitis, mild
Acute abdominal pain due to rib fracture
Hematuria
Hypokalemia
Acute kidney injury
Hyponatremia
Lactic acidosis
Morbid obesity due to excess calories
Consultants:
Infectious disease
Urology
General surgery
Gastroenterology
Imaging:
CT C/A/P 05/16/24:
1. No large central pulmonary embolism identified. Limited exam.
2. No acute process in the chest, abdomen or pelvis.
B/L LE U/S: No sonographic evidence for lower extremity venous thrombosis.
Abd U/S 05/17/24: Limited exam. Hepatomegaly and increased echogenicity in the liver, compatible with underlying hepatocellular disease, which most commonly relates to fatty infiltration of the liver.
Abd doppler U/S 05/18/24: Patent LEFT renal vein. No evidence for hydronephrosis.
CXR 05/18/24: Interval improvement in inflation of both lungs. Cardiomegaly. No convincing evidence for pulmonary edema pattern on the present radiograph.
Echo 05/18/24: Normal left ventricular size and systolic function. No regional wall motion
abnormalities are seen. LV ejection fraction is 65-70% by Cárdenas's method of
discs. Mild left ventricular hypertrophy.
No significant valvular disease.
No evidence of vegetation within the limitations of this study.
No prior study available for comparison.
MRI L-spine:
1. No MRI evidence for acute infectious discitis or epidural abscess in the lumbar spine.
2. Moderate-sized disc herniation at L4/L5 causing mild central canal stenosis.
3. Moderate right-sided facet joint arthrosis at L3/L4 and L4/L5.
4. Partial sacralization of the right side of L5.
CT A/P 05/20/24: Subacute mildly displaced lateral left 9th and 11th rib fractures. See above. Tiny left pleural effusion. New. Minimal left lower lobe consolidation likely atelectasis. New. Mild hepatomegaly. Stable. Hepatic fatty infiltration.
Stable. Mild diffuse bladder wall thickening. Improved. This can be seen with cystitis or bladder outlet obstruction. Mild prostate hypertrophy. Stable.
53-year-old male who presented with chief complaints of abdominal pain as outlined in the H&P done on admission. Hospital course by problem was:
MSSA bacteremia: Patient had extensive imaging and workup as above. The source of the patient's MSSA bacteremia was unclear. Blood cultures on May 16, 2024 and May 18, 2024 grew MSSA. Blood cultures on May 19, 2024 May 20, 2024 were no growth
to date. Echocardiogram was without vegetations. The patient was on Ancef and then transition to daptomycin as per infectious disease through 06/16/24. Of note, the exact etiology of the patient's abdominal pain remains unclear at this time. It
is hypothesized that his abdominal pain was actually due to subacute mildly displaced lateral left ninth and 11th rib fractures.
DM2: This was a new diagnosis this admission with a hemoglobin A1c of 7.7%. Diabetic diet and weight loss were encouraged. Patient was seen by the diabetes nurse practitioner. He was given a glucometer and test strips and will discuss further
management of his diabetes with his primary care physician after discharge. Metformin was started on discharge.
Alcohol abuse disorder: Patient reported drinking 10 beers and 6 ounces of whiskey daily. He was placed on the MSAS protocol. He was given thiamine/folate. He had no acute alcohol withdrawal hospitalized. He did have diffuse hepatic steatosis per
CT. He also had mild transaminitis and thrombocytopenia which improved.
Discharge Plan
-
Patient Disposition: Home (Routine Discharge)
Discharge Diagnosis/Procedures: Methicillin sensitive Staphylococcus aureus bacteremia
Abdominal pain from fracture
Hematuria
Enlarged prostate
Bladder wall thickening
Diabetes hemoglobin A1c 7.7
Dehydration
Fatty liver
Hypertension
Thrombocytopenia
Diet: Diabetic, Carb Controlled
Activity: As tolerated
Driving Restrictions: As prior to admission
Others Tests: HbA1C 3 months
Activity Restrictions/Additional Instructions:
Picc line needs to come out once antibiotics are finished. Follow up with PCP for fatty liver follow up. Weight loss recommended. Follow-up with urology for blood in the urine. Repeat urinalysis with next doctor visit. Stop drinking alcohol.
Referrals:
Óscar Bay MD [Active] -
(to discuss sleep disordered breathing
Check PFTs on day of office visit given his tobacco smoking history so we can rule out COPD)
Yohannes Lujan MD [Active] - (call Dr Lujan [phone] if urologic concerns but make routine appt jun/ jul for blood in urine tell them i saw you [facility])
Giacomo Sierra, DO [Active] -
UNKNOWN - PT DOES,NOT KNOW [Family Provider] - in less than 1 week
Prescriptions:
New
(DME) Contour Next Test Strips Strip
Qty: 60 0RF
Rx Instructions:
Pt testing twice a day
(DME) lancets [Color Lancets] 21 gauge Misc
Qty: 60 0RF
Rx Instructions:
Pt testing twice a day, fasting and 2 hrs after a meal
polyethylene glycol 3350 [HealthyLax] 17 gram Powder In Packet
17 g PO DAILY Qty: 0 0RF
thiamine HCl (vitamin B1) 100 mg Tablet
100 mg PO BID Qty: 0 0RF
amlodipine 10 mg Tablet
10 mg PO DAILY Qty: 30 0RF
losartan 25 mg Tablet
75 mg PO DAILY Qty: 30 0RF
magnesium oxide 500 mg magnesium Tablet
500 mg PO DAILY Qty: 0 0RF
folic acid 1 mg Tablet
1 mg PO DAILY Qty: 0 0RF
DAPTOmycin [Cubicin] 1000 MG
Syringe [Syringe-Pump] 0 ML
As Directed mls/hr IV Q24H
Ordered By: Arpan Shabazz MD
Last Taken: 05/25/24 12:15 20 mls
pantoprazole [Protonix] 40 mg tablet,delayed release (DR/EC)
40 mg PO DAILY Qty: 30 0RF
metformin 500 mg tablet
500 mg PO BID Qty: 60 0RF
Discontinued
ibuprofen 200 mg Tablet
600 mg PO Q6HPRN PRN (Reason: mild pain)
Discharge Orders:
Discharge Patient (As Directed); Ordered 05/25/24
Ordered By: Arpan Shabazz
Discharge Date and Time
Print Language: POLISH
[2024-05-25 15:19] VITALS: BP 139/89
== END 2024-05-25 16:43 | disposition home or self-care (01) | DRG 872 ==
LOC: 3 WEST ACU 15:47
PROVIDERS: Clinical Nurse Specialist Family Health; Emergency Medicine; Hospitalist; Internal Medicine Critical Care Medicine; Nurse Practitioner Family; ADMITTING PHYSICIAN Internal Medicine; ATTENDING PHYSICIAN Internal Medicine; CONSULT PHYSICIAN Internal Medicine; CONSULT PHYSICIAN Internal Medicine Infectious Disease; CONSULT PHYSICIAN Specialist; CONSULT PHYSICIAN Surgery; EMERGENCY PHYSICIAN Emergency Medicine; OTHER PHYSICIAN Internal Medicine Critical Care Medicine
DX: A41.01 Sepsis due to Methicillin susceptible Staphylococcus aureus (principal); N17.9 Acute kidney failure, unspecified; E87.1 Hypo-osmolality and hyponatremia; E87.20 Acidosis, unspecified; Z68.41 Body mass index [BMI] 40.0-44.9, adult; F17.210 Nicotine dependence, cigarettes, uncomplicated; K76.0 Fatty (change of) liver, not elsewhere classified; I10 Essential (primary) hypertension; E11.65 Type 2 diabetes mellitus with hyperglycemia; N20.0 Calculus of kidney; E87.6 Hypokalemia; E66.01 Morbid (severe) obesity due to excess calories; D69.59 Other secondary thrombocytopenia; F10.20 Alcohol dependence, uncomplicated; Z11.52 Encounter for screening for COVID-19
CPT/HCPCS: 71045; 71275; 72158; 74019; 74177; 76700; 80048; 80053; 80061; 80202; 80306; 80307; 81003; 81015; 82010; 82077; 82248; 82533; 82550; 82607; 82962; 82977; 83036; 83605; 83690; 83735; 83930; 83935; 84100; 84300; 84443; 84484; 85025; 85027; 85610; 85652; 85730; 86140; 86704; 86705; 86706; 86708; 86803; 87040; 87150; 87186; 87205; 87340; 87811; 93005; 93306; 93970; 93975; 94640; 96361; 96374; 96375; A9575; J0878; Q9967

== ENCOUNTER 2024-06-16 10:56 | Outpatient (RCR) | payer MEDICAID, SELFPAY ==
[2024-05-26 11:00] VITALS: BP 172/108
[2024-05-26] MEDS: CUBICIN 120 MG IV (11:12)
[2024-05-26 11:50] VITALS: BP 165/111
[2024-05-27 12:01] VITALS: BP 160/92
[2024-05-27] MEDS: CUBICIN 120 MG IV (12:07)
[2024-05-28 10:50] VITALS: BP 126/84
[2024-05-28] MEDS: CUBICIN 120 MG IV (11:01)
[2024-05-29] MEDS: CUBICIN 120 MG IV (11:04)
[2024-05-29 11:11] VITALS: BP 168/91
[2024-05-30 07:07] VITALS: BP 163/99
[2024-05-30] MEDS: CUBICIN 120 MG IV (07:18)
[2024-05-31] MEDS: CUBICIN 120 MG IV (07:20)
[2024-06-01 10:50] VITALS: BP 148/91
[2024-06-01] MEDS: CUBICIN 120 MG IV (11:16)
[2024-06-01 11:43] LABS: Hematocrit 40.8 % (39.0-52.0); Hemoglobin 14.9 g/dL (13.0-18.0); Mean Corp Hgb Conc. 36.5 g/dL (33.0-37.0); Mean Corpuscular Hgb 35.7 pg (27.0-31.0); Mean Corpuscular Volume 97.8 fL (80.0-94.0); Mean Platelet Volume 10.5 fL (7.4-10.4); Platelet Count 164 10^3/uL (130-400); Red Blood Cell Count 4.17 10^6/uL (4.70-6.10); Red Cell Dist. Width 11.2 % (11.5-14.5); White Blood Cell Count 4.8 10^3/uL (4.8-10.8)
[2024-06-01 13:02] LABS: Blood Urea Nitrogen 16 mg/dl (9-20); Calcium 9.7 mg/dl (8.4-10.2); Carbon Dioxide 24 mmol/L (22-30); Chloride 105 mmol/L (98-107); Creatine Phosphokinase 95 U/L (55-170); Glucose 104 mg/dl (70-99); Sodium 135 mmol/L (135-145); eGFR > 60.00
[2024-06-01 15:15] LABS: % Basophils 0.8 % (0-2); % Eosinophils 2.3 % (0-6); % Immature Granulocytes 0.2 % (0-0.5); % Lymphocytes 51.5 % (20.5-51.1); % Monocytes 9.9 % (1.7-9.3); % Neutrophils 35.3 % (42.2-75.2); Absolute Eosinophils 0.1 10^3/uL (0-0.7); Absolute Lymphocytes 2.5 10^3/uL (1.2-3.4); Absolute Monocytes 0.5 10^3/uL (0.1-0.6); Absolute Neutrophils 1.7 10^3/uL (1.4-6.5); Nucleated Red Blood Cells % 0 % (-)
[2024-06-02 10:00] VITALS: BP 154/90
[2024-06-02] MEDS: CUBICIN 120 MG IV (10:21)
[2024-06-03] MEDS: CUBICIN 120 MG IV (11:10)
[2024-06-04] MEDS: CUBICIN 120 MG IV (11:02)
[2024-06-04 11:11] VITALS: BP 138/84
[2024-06-05] MEDS: CUBICIN 120 MG IV (10:59)
[2024-06-05 11:12] VITALS: BP 141/90
[2024-06-06 07:30] VITALS: BP 145/90
[2024-06-06] MEDS: CUBICIN 120 MG IV (08:00)
[2024-06-07 07:24] VITALS: BP 132/82
[2024-06-07] MEDS: CUBICIN 120 MG IV (07:32)
[2024-06-08] MEDS: CUBICIN 120 MG IV (10:56)
[2024-06-08 11:18] VITALS: BP 145/88
[2024-06-08 12:05] LABS: % Basophils 0.4 % (0-2); % Eosinophils 8.2 % (0-6); % Immature Granulocytes 0.3 % (0-0.5); % Lymphocytes 35.9 % (20.5-51.1); % Monocytes 10.8 % (1.7-9.3); % Neutrophils 44.4 % (42.2-75.2); Absolute Eosinophils 0.6 10^3/uL (0-0.7); Absolute Lymphocytes 2.7 10^3/uL (1.2-3.4); Absolute Monocytes 0.8 10^3/uL (0.1-0.6); Absolute Neutrophils 3.4 10^3/uL (1.4-6.5); Hematocrit 42.4 % (39.0-52.0); Hemoglobin 15.9 g/dL (13.0-18.0); Mean Corp Hgb Conc. 37.5 g/dL (33.0-37.0); Mean Corpuscular Hgb 36.6 pg (27.0-31.0); Mean Corpuscular Volume 97.5 fL (80.0-94.0); Mean Platelet Volume 11.9 fL (7.4-10.4); Nucleated Red Blood Cells % 0 % (-); Platelet Count 128 10^3/uL (130-400); Red Blood Cell Count 4.35 10^6/uL (4.70-6.10); Red Cell Dist. Width 10.9 % (11.5-14.5); White Blood Cell Count 7.6 10^3/uL (4.8-10.8)
[2024-06-08 12:09] LABS: Blood Urea Nitrogen 13 mg/dl (9-20); Calcium 9.8 mg/dl (8.4-10.2); Carbon Dioxide 21 mmol/L (22-30); Chloride 103 mmol/L (98-107); Creatine Phosphokinase 82 U/L (55-170); Glucose 97 mg/dl (70-99); Potassium 3.9 mmol/L (3.5-5.1); Sodium 137 mmol/L (135-145); eGFR > 60.00
[2024-06-09] MEDS: CUBICIN 120 MG IV (10:59)
[2024-06-10 11:21] VITALS: BP 143/85
[2024-06-10] MEDS: CUBICIN 120 MG IV (11:27)
[2024-06-11] MEDS: CUBICIN 120 MG IV (11:22)
[2024-06-11 11:29] VITALS: BP 129/81
[2024-06-12] MEDS: CUBICIN 120 MG IV (11:08)
[2024-06-12 11:10] VITALS: BP 133/81
[2024-06-13 07:10] VITALS: BP 130/74
[2024-06-13] MEDS: CUBICIN 120 MG IV (07:10)
[2024-06-14 07:22] VITALS: BP 130/88
[2024-06-14] MEDS: CUBICIN 120 MG IV (07:28)
[2024-06-15 10:45] VITALS: BP 141/82
[2024-06-15] MEDS: CUBICIN 120 MG IV (11:08)
[2024-06-15 12:45] LABS: Blood Urea Nitrogen 9 mg/dl (9-20); Calcium 9.5 mg/dl (8.4-10.2); Carbon Dioxide 25 mmol/L (22-30); Chloride 103 mmol/L (98-107); Glucose 94 mg/dl (70-99); Sodium 141 mmol/L (135-145); eGFR > 60.00
[2024-06-15 12:48] LABS: % Basophils 0.9 % (0-2); % Eosinophils 7.4 % (0-6); % Immature Granulocytes 0.2 % (0-0.5); % Lymphocytes 42.7 % (20.5-51.1); % Monocytes 10.2 % (1.7-9.3); % Neutrophils 38.6 % (42.2-75.2); Absolute Basophils 0.1 10^3/uL (0-0.2); Absolute Eosinophils 0.4 10^3/uL (0-0.7); Absolute Lymphocytes 2.3 10^3/uL (1.2-3.4); Absolute Monocytes 0.5 10^3/uL (0.1-0.6); Hematocrit 40.7 % (39.0-52.0); Hemoglobin 14.9 g/dL (13.0-18.0); Mean Corp Hgb Conc. 36.6 g/dL (33.0-37.0); Mean Corpuscular Hgb 35.1 pg (27.0-31.0); Mean Corpuscular Volume 95.8 fL (80.0-94.0); Mean Platelet Volume 11.4 fL (7.4-10.4); Nucleated Red Blood Cells % 0 % (-); Platelet Count 146 10^3/uL (130-400); Red Blood Cell Count 4.25 10^6/uL (4.70-6.10); Red Cell Dist. Width 11.2 % (11.5-14.5); White Blood Cell Count 5.3 10^3/uL (4.8-10.8)
[2024-06-15 14:01] LABS: Creatine Phosphokinase 132 U/L (55-170)
[2024-06-16] MEDS: CUBICIN 120 MG IV (11:05)
[2024-06-16 12:21] VITALS: BP 124/79
== END 2024-06-16 13:10 | disposition home or self-care (01) ==
LOC: OID 10:56
PROVIDERS: ATTENDING PHYSICIAN Internal Medicine Infectious Disease
DX: A49.01 Methicillin susceptible Staphylococcus aureus infection, unspecified site (principal); R78.81 Bacteremia
CPT/HCPCS: 80048; 82550; 85025; 96365; J0878

== ENCOUNTER → 2025-09-06 10:28 | Outpatient (REF) | payer MEDICAID, SELFPAY | LOC: EMG 10:28 | PROVIDERS: ATTENDING PHYSICIAN Student in an Organized Health Care Education/Training Program; FAMILY PHYSICIAN Student in an Organized Health Care Education/Training Program | DX: E11.42 Type 2 diabetes mellitus with diabetic polyneuropathy (principal) | CPT/HCPCS: 95886; 95911 ==